=== PATIENT | female | born 1940 | race Caucasian/White ===

== ENCOUNTER 2016-12-11 10:11 | Day surgery (SDC) | payer MEDICARE, OTHER ==
[2016-12-09 08:38] VITALS: BMI 30.3
[~2016-12-11 10:11] MED LIST: LACTATED RINGERS 1,000 ML IV SCH
[2016-12-11] MEDS ORDERED: LIDOCAINE 1% 20 ML VIAL (10MG/ML) FOR IV START SQ ONE (11:28)
[2016-12-11 11:30] VITALS: RESP 16; TEMP 98
[2016-12-11] MEDS ORDERED: LIDOCAINE 1% INJ 10MG/ML (20 ML MDV) ONE (11:56)
[2016-12-11] MEDS ORDERED: PROPOFOL 10 MG/ML 20 ML VIAL IV ONE (11:56)
--- NOTE | 2016-12-11 12:14 | P.PCN ---
Date of Procedure: 12/11/16 Preoperative Diagnosis: Postoperative Diagnosis: Procedure(s) Performed: BRIEF HISTORY: Patient is a 76-year-old pleasant white female, scheduled for an elective colonoscopy as a part of evaluation of prior history of colon polyps. Last colonoscopy was 5 years ago. PROCEDURE PERFORMED: Colonoscopy. PREOPERATIVE DIAGNOSIS: History of colon polyps. IV sedation per Anesthesia. PROCEDURE: After informed consent was obtained, the patient, was brought into the endoscopy unit. IV sedation was administered by Anesthesia under continuous monitoring. Digital rectal examination was normal. Initially the Olympus CF- 160 flexible video colonoscope was then inserted in the rectum, gradually advanced into the cecum without any difficulty. Careful examination was performed as the scope was gradually being withdrawn. Ileocecal valve and the appendiceal orifice were visualized and appeared normal. Prep was excellent. Mucosa of the cecum, ascending colon, transverse colon, descending colon, sigmoid colon, and rectum appeared normal. Scattered sigmoid diverticulosis seen. Retroflexion was performed in the rectum and no lesions were seen. The patient tolerated the procedure well. IMPRESSION: Normal-appearing colon from rectum to cecum with no evidence of colorectal neoplasia. Scattered sigmoid diverticulosis. RECOMMENDATIONS: Findings of this examination were discussed with the patient as well as a family. She was advised to be a high-fiber diet and take fiber supplements as needed. At her age I would not recommend any further Surveillance colonoscopy. . Implants: Indications for Procedure: Operative Findings: Description of Procedure:
[2016-12-11 13:11] VITALS: BP 141/93; PULSE 79
== END 2016-12-11 13:20 | disposition home or self-care (01) ==
LOC: ORWHC2ENDO 10:11
PROVIDERS: ATTEND Internal Medicine Gastroenterology
DX: Z12.11 Encounter for screening for malignant neoplasm of colon (principal); Z86.010 Personal history of colon polyps; K57.30 Diverticulosis of large intestine without perforation or abscess without bleeding; E78.5 Hyperlipidemia, unspecified; F39 Unspecified mood [affective] disorder; G43.909 Migraine, unspecified, not intractable, without status migrainosus; Z79.82 Long term (current) use of aspirin; Z79.899 Other long term (current) drug therapy; Z88.1 Allergy status to other antibiotic agents; Z88.0 Allergy status to penicillin
CPT/HCPCS: J2001; J2704; G0105; 45378

== ENCOUNTER → 2016-12-16 | Outpatient (CLI) | payer MEDICARE, OTHER ==
--- NOTE | 2016-12-17 11:34 | MM ---
Reason for exam: screening (asymptomatic). Last mammogram was performed 1 year ago. History: Patient is postmenopausal and history of other cancer. 2 benign excisional biopsies of the left breast. Benign excisional biopsy of the right breast. Took estrogen for 10 years beginning at age 18. Physical Findings: A clinical breast exam by your physician is recommended on an annual basis and results should be correlated with mammographic findings. MG 3D Screening Mammo W/Cad Bilateral CC and MLO view(s) were taken. Prior study comparison: December 13, 2015, bilateral MG screening mammo w CAD. December 11, 2014, bilateral MG screening mammo w CAD. The breast tissue is almost entirely fat. There is no discrete abnormality. No significant changes when compared with prior studies. ASSESSMENT: Negative, BI-RAD 1 RECOMMENDATION: Routine screening mammogram of both breasts in 1 year.
== END | disposition home or self-care (01) ==
LOC: RADMAMWWP 09:10
PROVIDERS: ATTEND Family Medicine
DX: Z12.31 Encounter for screening mammogram for malignant neoplasm of breast (principal)
CPT/HCPCS: 77063; G0202

== ENCOUNTER → 2018-01-13 | Outpatient (CLI) | payer MEDICARE, OTHER ==
--- NOTE | 2018-01-18 08:28 | MM ---
Reason for exam: screening (asymptomatic). Last mammogram was performed 1 year and 1 month ago. History: Patient is postmenopausal and history of other cancer. 2 benign excisional biopsies of the left breast. Benign excisional biopsy of the right breast. Took estrogen for 10 years beginning at age 18. Physical Findings: A clinical breast exam by your physician is recommended on an annual basis and results should be correlated with mammographic findings. MG 3D Screening Mammo W/Cad Bilateral CC and MLO view(s) were taken. Prior study comparison: December 16, 2016, bilateral MG 3d screening mammo w/cad. December 13, 2015, bilateral MG screening mammo w CAD. There are scattered fibroglandular densities. No significant changes when compared with prior studies. ASSESSMENT: Negative, BI-RAD 1 RECOMMENDATION: Routine screening mammogram of both breasts in 1 year.
== END | disposition home or self-care (01) ==
LOC: RADMAMWWP 16:00
PROVIDERS: ATTEND Family Medicine
DX: Z12.31 Encounter for screening mammogram for malignant neoplasm of breast (principal)
CPT/HCPCS: 77063; 77067

== ENCOUNTER → 2019-02-15 | Outpatient (CLI) | payer MEDICARE, OTHER ==
--- NOTE | 2019-02-16 15:11 | MM ---
Reason for exam: screening (asymptomatic). Last mammogram was performed 1 year and 1 month ago. History: Patient is postmenopausal and history of other cancer. 2 benign excisional biopsies of the left breast. Benign excisional biopsy of the right breast. Took estrogen for 10 years beginning at age 18. Physical Findings: A clinical breast exam by your physician is recommended on an annual basis and results should be correlated with mammographic findings. MG 3D Screening Mammo W/Cad Bilateral CC and MLO view(s) were taken. Prior study comparison: January 13, 2018, bilateral MG 3d screening mammo w/cad. December 16, 2016, bilateral MG 3d screening mammo w/cad. There are scattered fibroglandular densities. Finding #1: There is a 7 mm equal density (isodense), round mass in the upper quadrant of the left breast. Finding #2: There are typically benign calcifications in both breasts. ASSESSMENT: Incomplete: need additional imaging evaluation, BI-RAD 0 RECOMMENDATION: Special view mammogram of the left breast. If lesion persists on supplemental views, image directed ultrasound is recommended. [facility] will attempt to contact patient to return for supplemental views and ultrasound if indicated.
== END | disposition home or self-care (01) ==
LOC: RADMAMWWP 07:44
PROVIDERS: ATTEND Family Medicine
DX: Z12.31 Encounter for screening mammogram for malignant neoplasm of breast (principal)
CPT/HCPCS: 77063; 77067

== ENCOUNTER → 2019-03-03 | Outpatient (CLI) | payer MEDICARE, OTHER ==
--- NOTE | 2019-03-03 11:46 | MM ---
Reason for exam: additional evaluation requested from abnormal screening. Last mammogram was performed 1 month ago. History: Patient is postmenopausal and history of other cancer. 2 benign excisional biopsies of the left breast. Benign excisional biopsy of the right breast. Took estrogen for 10 years beginning at age 18. Physical Findings: Nurse did not find any significant physical abnormalities on exam. MG 3D Work Up W/Cad LT Spot compression CC and LM view(s) were taken of the left breast. Prior study comparison: February 15, 2019, bilateral MG 3d screening mammo w/cad. January 13, 2018, bilateral MG 3d screening mammo w/cad. There are scattered fibroglandular densities. CC lateral asymmetry is stable from prior exams. Left MLO finding relates to a mole with mole marker. These results were verbally communicated with the patient and result sheet given to the patient on 03/03/19. ASSESSMENT: Benign, BI-RAD 2 RECOMMENDATION: Return to routine screening mammogram schedule for both breasts.
== END | disposition home or self-care (01) ==
LOC: RADMAMWWP 10:18
PROVIDERS: ATTEND Family Medicine
DX: R92.8 Other abnormal and inconclusive findings on diagnostic imaging of breast (principal)
CPT/HCPCS: 77065; G0279; 77061

== ENCOUNTER → 2020-01-03 | Outpatient (CLI) | payer MEDICARE ==
--- NOTE | 2020-01-03 15:00 | BD ---
EXAMINATION TYPE: Axial Bone Density DATE OF EXAM: 01/03/2020 COMPARISON: NONE CLINICAL HISTORY: 79-year-old female with known osteoporosis, postmenopausal screening Nuclear Medicine Study in the last 2 weeks: NO Barium Study in the last week: NO : NO Height: 5 FT 5 1/4 IN Weight: 171 FRAX RISK QUESTIONS: Alcohol (3 or more units per day): NO Family History (Parent hip fracture): YES Glucocorticoids (More than 3mos): NO (Ex: prednisone, prednisolone, methylprednisolone, dexamethasone, and hydrocortisone). History of Fracture in Adulthood: YES Secondary Osteoporosis: 1. Type 1 Diabetes: NO 2. Hyperthyroidism: NO 3. Menopause before 45: NO 4. Malnutrition: NO 5. Chronic liver disease: NO Rheumatoid Arthritis: NO Current Tobacco Use: NO RISK FACTORS HISTORY OF: History of Wrist Fracture: LT When: 20 YEARS AGO Family History of Osteoporosis: YES Active: YES Postmenopausal woman: AGE 58 Take estrogen and/or progesterone medications: TOOK FOR 10 YEARS NO LONGER TAKES MEDICATIONS: Additional Medications: CALCIUM , PROTONIX, ELEVIL, HYDROCHLOROTHIAZIDE, CRESTOR Additional History: EXAM MEASUREMENTS: Bone mineral densitometry was performed using the [employer] System. Bone mineral density as measured about the Lumbar spine is: ----- L1-L4(G/cm2): 1.419 T Score Values are as follows: ----- L2: 2.4 ----- L3: 2.9 ----- L4: 1.0 ----- L1-L4: 2.0 Bone mineral density has: DECREASED -6.0 % since study of: 2012 Bone mineral density about the R hip (g/cm2): 0.806 Bone mineral density about the L hip (g/cm2): 0.846 T Score values are as follows: -----R Neck: -1.7 -----L Neck: -1.4 -----R Total: -1.2 -----L Total: -0.8 Bone mineral density has: INCREASED 0.3 % since study of: 2012 IMPRESSION: Osteopenia (T Score between -2.5 and -1). There is slightly increased risk of fracture and the patient may be considered for treatment. Re-Screen 2-5 years. NOTE: T-SCORE=SD OF THE YOUNG ADULT MEAN.
== END | disposition home or self-care (01) ==
LOC: RADBDWWP 09:25
PROVIDERS: ATTEND Family Medicine
DX: M81.0 Age-related osteoporosis without current pathological fracture (principal)
CPT/HCPCS: 77080

== ENCOUNTER → 2020-05-24 | Outpatient (CLI) | payer MEDICARE ==
--- NOTE | 2020-05-27 11:05 | MM ---
Reason for exam: screening (asymptomatic). Last mammogram was performed 1 year and 3 months ago. History: Patient is postmenopausal and history of other cancer. 2 benign excisional biopsies of the left breast. Benign excisional biopsy of the right breast. Took estrogen for 10 years beginning at age 18. Physical Findings: A clinical breast exam by your physician is recommended on an annual basis and results should be correlated with mammographic findings. MG 3D Screening Mammo W/Cad Bilateral CC and MLO view(s) were taken. Prior study comparison: March 03, 2019, left breast MG 3d work up w/cad LT. February 15, 2019, bilateral MG 3d screening mammo w/cad. There are scattered fibroglandular densities. Stable benign calcifications. There is no discrete abnormality. No significant changes when compared with prior studies. ASSESSMENT: Benign, BI-RAD 2 RECOMMENDATION: Routine screening mammogram of both breasts in 1 year.
== END | disposition home or self-care (01) ==
LOC: RADMAMWWP 07:46
PROVIDERS: ATTEND Family Medicine
DX: Z12.31 Encounter for screening mammogram for malignant neoplasm of breast (principal)
CPT/HCPCS: 77063; 77067

== ENCOUNTER 2020-06-11 14:30 | Inpatient (IN) | payer MEDICARE ==
[2020-06-11] MEDS ORDERED: SODIUM CHLORIDE 0.9% 500 ML 500 ML IV STA (14:53)
[2020-06-11 15:02] LABS: Glucose,Whole Blood 103 mg/dL (75-99)
--- NOTE | 2020-06-11 15:06 | ED ---
General Adult HPI - General Chief complaint: Neuro Symptoms/Deficit Stated complaint: Vision problems Time Seen by Provider: 06/11/20 14:35 Source: patient, RN notes reviewed Mode of arrival: ambulatory Limitations: no limitations - History of Present Illness Initial comments: This is an 79-year-old female presents emergency Department because she lost some of her visual arnett in both eyes. Patient states when she looks straight ahead she loses her left upper quadrant in both eyes. Patient states this started about 9:45 last night. Patient denies any headache patient denies any numbness or weakness. Patient denies any slurred speech or facial droop. Patient denies any other symptoms at this time. Patient states she went to an window/distribution clerk and he found no abnormality and thought she might of had a stroke. His any recent fever chills or cough per patient denies any chest pain or difficulty breathing patient denies abdominal pain patient denies nausea vomiting diarrhea. - Related Data Home Medications Medication Instructions Recorded Confirmed Amitriptyline HCl 50 mg PO HS 03/21/15 12/11/16 Aspirin 81 mg PO HS 03/21/15 12/11/16 Calcium Carbonate/Vitamin D3 1 each PO DAILY 03/21/15 12/11/16 [Calcium 600 + Vit D Tablet] Lysine 2 tab PO DAILY 03/21/15 12/11/16 Magnesium W/ Zinc, 400 Mg 1 tab PO DAILY 03/21/15 12/11/16 [place]-3S/Dha/Epa/Fish Oil [[place]-3 1 each PO DAILY 03/21/15 12/11/16 Fish Oil 1,000 mg Sfgl] Pantoprazole Sodium [Protonix] 40 mg PO DAILY 03/21/15 12/11/16 Allergies Allergy/AdvReac Type Severity Reaction Status Date / Time clindamycin [From Cleocin] Allergy Rash/Hives Verified 06/11/20 15:34 clindamycin HCl Allergy Itching Verified 06/11/20 15:34 [From Cleocin] clindamycin palmitate HCl Allergy Itching Verified 06/11/20 15:34 [From Cleocin] clindamycin phosphate Allergy Itching Verified 06/11/20 15:34 [From Cleocin] nitrofurantoin Allergy Itching Verified 06/11/20 15:34 [From Furadantin] Penicillins Allergy Rash/Hives Verified 06/11/20 15:34 Review of Systems ROS Statement: Those systems with pertinent positive or pertinent negative responses have been documented in the HPI. ROS Other: All systems not noted in ROS Statement are negative. Past Medical History Past Medical History: GERD/Reflux, Hyperlipidemia, Hypertension, Osteoarthritis (OA) History of Any Multi-Drug Resistant Organisms: None Reported Past Surgical History: Adenoidectomy, Tonsillectomy, Tubal Ligation Additional Past Surgical History / Comment(s): breast biopsy Past Psychological History: No Psychological Hx Reported Smoking Status: Never smoker Past Alcohol Use History: Occasional Past Drug Use History: None Reported - Past Family History Father Family Medical History: Pulmonary Embolus Sister(s) Family Medical History: Pulmonary Embolus General Exam - General Exam Comments Initial Comments: GENERAL: Patient is well-developed and well-nourished. Patient is nontoxic and well- hydrated and is in no acute distress. ENT: Neck is soft and supple. No significant lymphadenopathy is noted. Oropharynx is clear. Moist mucous membranes. Neck has full range of motion without eliciting any pain. EYES: The sclera were anicteric and conjunctiva were pink and moist. Extraocular movements were intact and pupils were equal round and reactive to light. Eyelids were unremarkable. Patient has visual field deficit in the left upper quadrant both eyes. Left eye is worse in the right eye PULMONARY: Unlabored respirations. Good breath sounds bilaterally. No audible rales rhonchi or wheezing was noted. CARDIOVASCULAR: There is a regular rate and rhythm without any murmurs gallops or rubs. ABDOMEN: Soft and nontender with normal bowel sounds. No palpable organomegaly was noted. There is no palpable pulsatile mass. SKIN: Skin is clear with no lesions or rashes and otherwise unremarkable. NEUROLOGIC: Patient is alert and oriented x3. Cranial nerves II through XII are grossly intact. Motor and sensory are also intact. Normal speech, volume and content. Symmetrical smile. MUSCULOSKELETAL: Normal extremities with adequate strength and full range of motion. No lower extremity swelling or edema. No calf tenderness. LYMPHATICS: No significant lymphadenopathy is noted PSYCHIATRIC: Normal psychiatric evaluation. Limitations: no limitations Course Vital Signs 06/11/20 06/11/20 06/11/20 14:33 15:23 15:32 Temperature 99.2 F Pulse Rate 101 H 84 87 Respiratory 16 16 14 Rate Blood Pressure 158/91 137/82 133/96 O2 Sat by Pulse 94 L 98 96 Oximetry 06/11/20 06/11/20 15:45 16:00 Temperature Pulse Rate 97 99 Respiratory 16 16 Rate Blood Pressure 142/85 133/79 O2 Sat by Pulse 99 95 Oximetry Medical Decision Making - Medical Decision Making EKG shows normal sinus rhythm at 97 bpm WI interval 274 QRS is 98 QT interval 346 QTC is 439. Patient's EKG shows no ST segment elevation or depression. CTA shows no acute abnormality. I spoke with Dr. Faye he saw the CTA and he stated there be no intervention. The computed tomography scan of the brain does show a new acute occipital stroke. - Lab Data Result diagrams: 06/11/20 15:05 06/11/20 15:05 Lab Results 06/11/20 06/11/20 06/11/20 Range/Units 14:59 15:05 15:05 WBC 14.6 H (3.8-10.6) k/uL RBC 5.37 (3.80-5.40) m/uL Hgb 16.4 H (11.4-16.0) gm/dL Hct 47.4 H (34.0-46.0) % MCV 88.2 (80.0-100.0) fL MCH 30.5 (25.0-35.0) pg MCHC 34.6 (31.0-37.0) g/dL RDW 12.2 (11.5-15.5) % Plt Count 237 (150-450) k/uL MPV 7.8 Neutrophils % 75 % Lymphocytes % 19 % Monocytes % 3 % Eosinophils % 2 % Basophils % 1 % Neutrophils # 10.9 H (1.3-7.7) k/uL Lymphocytes # 2.8 (1.0-4.8) k/uL Monocytes # 0.5 (0-1.0) k/uL Eosinophils # 0.3 (0-0.7) k/uL Basophils # 0.1 (0-0.2) k/uL PT 10.1 (9.0-12.0) sec INR 1.0 (<1.2) APTT 24.6 (22.0-30.0) sec Sodium (137-145) mmol/L Potassium (3.5-5.1) mmol/L Chloride (98-107) mmol/L Carbon Dioxide (22-30) mmol/L Anion Gap mmol/L BUN (7-17) mg/dL Creatinine (0.52-1.04) mg/dL Est GFR (CKD-EPI)AfAm (>60 ml/min/1.73 sqM) Est GFR (CKD-EPI)NonAf (>60 ml/min/1.73 sqM) Glucose (74-99) mg/dL POC Glucose (mg/dL) 103 H (75-99) mg/dL POC Glu [employer] Bhargavi Chao Calcium (8.4-10.2) mg/dL Total Bilirubin (0.2-1.3) mg/dL AST (14-36) U/L ALT (4-34) U/L Alkaline Phosphatase (38-126) U/L Troponin I (0.000-0.034) ng/mL Total Protein (6.3-8.2) g/dL Albumin (3.5-5.0) g/dL 06/11/20 06/11/20 Range/Units 15:05 15:05 WBC (3.8-10.6) k/uL RBC (3.80-5.40) m/uL Hgb (11.4-16.0) gm/dL Hct (34.0-46.0) % MCV (80.0-100.0) fL MCH (25.0-35.0) pg MCHC (31.0-37.0) g/dL RDW (11.5-15.5) % Plt Count (150-450) k/uL MPV Neutrophils % % Lymphocytes % % Monocytes % % Eosinophils % % Basophils % % Neutrophils # (1.3-7.7) k/uL Lymphocytes # (1.0-4.8) k/uL Monocytes # (0-1.0) k/uL Eosinophils # (0-0.7) k/uL Basophils # (0-0.2) k/uL PT (9.0-12.0) sec INR (<1.2) APTT (22.0-30.0) sec Sodium 137 (137-145) mmol/L Potassium 4.1 (3.5-5.1) mmol/L Chloride 102 (98-107) mmol/L Carbon Dioxide 26 (22-30) mmol/L Anion Gap 9 mmol/L BUN 17 (7-17) mg/dL Creatinine 0.84 (0.52-1.04) mg/dL Est GFR (CKD-EPI)AfAm 76 (>60 ml/min/1.73 sqM) Est GFR (CKD-EPI)NonAf 66 (>60 ml/min/1.73 sqM) Glucose 101 H (74-99) mg/dL POC Glucose (mg/dL) (75-99) mg/dL POC Glu [employer] Calcium 10.0 (8.4-10.2) mg/dL Total Bilirubin 0.9 (0.2-1.3) mg/dL AST 40 H (14-36) U/L ALT 27 (4-34) U/L Alkaline Phosphatase 89 (38-126) U/L Troponin I <0.012 (0.000-0.034) ng/mL Total Protein 8.1 (6.3-8.2) g/dL Albumin 4.8 (3.5-5.0) g/dL Critical Care Time Critical Care Time: Yes Total Critical Care Time: 35 Disposition Clinical Impression: Cerebrovascular accident (CVA) Disposition: ADMITTED IP TO THIS HOSP Referrals: Antonieta Santa MD [Primary Care Provider] - 1-2 days Time of Disposition: 16:20
[2020-06-11 15:14] LABS: Basophils # (A) 0.1 k/uL (0-0.2); Basophils % (A) 1 %; Eosinophils # (A) 0.3 k/uL (0-0.7); Eosinophils % (A) 2 %; HCT 47.4 % (34.0-46.0); HGB 16.4 gm/dL (11.4-16.0); Lymphocytes # (A) 2.8 k/uL (1.0-4.8); Lymphocytes % (A) 19 %; MCH 30.5 pg (25.0-35.0); MCHC 34.6 g/dL (31.0-37.0); MCV 88.2 fL (80.0-100.0); Mean Platelet Volume 7.8; Monocytes # (A) 0.5 k/uL (0-1.0); Monocytes % (A) 3 %; Neutrophils # (A) 10.9 k/uL (1.3-7.7); Neutrophils % (A) 75 %; Platelet Count 237 k/uL (150-450); RBC 5.37 m/uL (3.80-5.40); RDW 12.2 % (11.5-15.5); WBC 14.6 k/uL (3.8-10.6)
[2020-06-11 15:24] LABS: Partial Thromboplastin Time 24.6 sec (22.0-30.0); Prothrombin Time 10.1 sec (9.0-12.0)
--- NOTE | 2020-06-11 15:26 | CT ---
EXAMINATION TYPE: CT brain wo con for TPA DATE OF EXAM: 06/11/2020 COMPARISON: HISTORY: visual disturbance CT DLP: [address] of the brain was performed. The ventricles, basal cisterns and sulci overlying the cerebral convexities demonstrate mild enlargem ent. There is decreased attenuation within the right occipital lobe compatible with acute CVA. There is no evidence for intracranial hemorrhage or sulcal effacement. There is decreased attenuation about the periventricular white matter and deep white matter of both c erebral hemispheres, compatible with chronic small vessel ischemia. Differential diagnosis does inclu de demyelination. No mass effects are seen.No midline shift. Osseous calvarium is intact. If symptoms persist consider MRI. IMPRESSION: 1. There is decreased attenuation within the right occipital lobe compatible with acute CVA. No evide nce for hemorrhagic transformation.
[2020-06-11 15:27] LABS: Albumin 4.8 g/dL (3.5-5.0); Potassium 4.1 mmol/L (3.5-5.1); Total Bilirubin 0.9 mg/dL (0.2-1.3); Total Protein 8.1 g/dL (6.3-8.2)
--- NOTE | 2020-06-11 16:06 | CT ---
EXAMINATION TYPE: CT angio head neck DATE OF EXAM: 06/11/2020 COMPARISON: None HISTORY: visual disturbance CT DLP: 1490.5 mGycm CONTRAST: Performed with IV Contrast, patient injected with 65 mL of Isovue 370. Combination Contrast CTA cervical carotids and [place] CTA cervical carotids with 3-D recons truction Contrast CTA of the cervical carotids was performed 3-D reconstruction imaging obtained at a separate workstation. Right carotid system: Mild plaque is seen of the right common carotid artery. There is mild plaque a lso noted at the carotid bulb and proximal ICA. No significant diameter reduction. ECA is patent. Right vertebral artery appears unremarkable. Left carotid system: Mild plaque is seen of the left common carotid artery. There is mild plaque als o noted at the carotid bulb and proximal ICA. No significant diameter reduction. ECA is patent. Lef t vertebral artery appears unremarkable. IMPRESSION: 1. No significant diameter reduction to account for the patient's symptoms. CTA [place] with 3-D reconstruction Contrast CTA of the [place] was performed 3-D reconstruction imaging obtained at a separate workstation. Vertebrobasilar system as well as intracranial portions of the internal carotid arteries and their ma merlene tributaries are patent. I do not see evidence for sizable aneurysm or vascular malformation. Pl ease note MRI provides greater sensitivity and specificity. Visualized brain appears grossly unremar kable. IMPRESSION: 1. No significant abnormality.
[2020-06-11] MEDS ORDERED: ASPIRIN 325 MG TAB PO STA (16:11)
--- NOTE | 2020-06-11 16:38 | XR ---
EXAMINATION TYPE: XR chest 2V DATE OF EXAM: 06/11/2020 COMPARISON: None HISTORY: Altered mental status headache TECHNIQUE: FINDINGS: There is no heart failure nor confluent pneumonic infiltrate. There is probably a hiatal he rnia. Costophrenic angles are clear. There are no hilar masses. Thoracic aorta is atheromatous. Bony thorax is intact. IMPRESSION: No active cardiopulmonary disease.
--- NOTE | 2020-06-11 19:31 | P.HPIM ---
History of Present Illness H&P Date: 06/11/20 Cuauhtemoc Blake, is an 79-year-old female who presented to [facility] emergency room due to sudden loss of vision in the left eye patient was seen by her station installer and was told that there was no abnormality on her eye exam she was referred to emergency room, patient was evaluated in the emergency room by Dr. Hodgson, her vital exam on presentation revealed a temperature of 99.2 pulse 101 respiration 16 and her pulse ox was 94% on room air. White blood count was elevated at 14.6 and AST was slightly elevated at 40 EKG was done in the emergency room and revealed normal sinus rhythm, CT angiogram of the head and neck did not reveal any abnormality , computed tomography scan of the brain revealed evidence of decreased attenuation within the right occipital lobe compatible with acute CVA no evidence for hemorrhagic transformation, patient was started on oral Plavix and aspirin in the emergency room she was admitted to telemetry floor, echocardiogram was ordered cardiology and neurology consultation were requested. Patient denies any previous history of cardiovascular disease or stroke in the past, she stated that she had an episode of chest pain 10 years ago at that time she started seen [facility] but never had any diagnosis of myocardial infarction and coronary artery disease or congestive heart failure in the past. On review of systems patient is complaining of partial loss of vision in the lateral vision of the left eye she is also complaining of headache otherwise she denies any complaints there is no fever or chills no dizziness, no chest pain no shortness of breath no cough no nausea or vomiting no abdominal pain no diarrhea no blood in the stools no burning with urination no frequency or urgency and no hematuria there is no change in her speech or her gait there is no weakness or numbness in any of the extremities. Past Medical History Past Medical History: GERD/Reflux, Hyperlipidemia, Hypertension, Osteoarthritis (OA) Additional Past Medical History / Comment(s): HX PRE-CA SKIN. 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.MIGRAINE HEADACHE History of Any Multi-Drug Resistant Organisms: None Reported Date of last positivie culture/infection: 11/24/18 MDRO Source:: URINE Past Surgical History: Adenoidectomy, Tonsillectomy, Tubal Ligation Additional Past Surgical History / Comment(s): breast biopsy Past Anesthesia/Blood Transfusion Reactions: No Reported Reaction Past Psychological History: No Psychological Hx Reported Smoking Status: Never smoker Past Alcohol Use History: Occasional Past Drug Use History: None Reported - Past Family History Father Family Medical History: Pulmonary Embolus Sister(s) Family Medical History: Pulmonary Embolus Medications and Allergies Home Medications Medication Instructions Recorded Confirmed Type Aspirin 81 mg PO HS 03/21/15 06/11/20 History Pantoprazole Sodium [Protonix] 40 mg PO DAILY 03/21/15 06/11/20 History Amitriptyline HCl [Elavil] 50 mg PO HS 06/11/20 06/11/20 History Ascorbic Acid [Vitamin C] 1,000 mg PO DAILY 06/11/20 06/11/20 History Cholecalciferol [Vitamin D3 (25 2,000 unit PO DAILY 06/11/20 06/11/20 History Mcg = 1000 Iu)] Cranberry Fruit Extract [Cranberry] 500 mg PO DAILY 06/11/20 06/11/20 History L.acidoph,Paracasei, B.lactis 1 cap PO DAILY 06/11/20 06/11/20 History [Probiotic] Lysine [l-Lysine] 500 mg PO DAILY 06/11/20 06/11/20 History Gray-3 Fatty Acids/Fish Oil [Fish 1 cap PO DAILY 06/11/20 06/11/20 History Oil 1,000 mg Softgel] Rosuvastatin Calcium [Crestor] 10 mg PO HS 06/11/20 06/11/20 History Zinc 50 mg PO DAILY 06/11/20 06/11/20 History hydroCHLOROthiazide 25 mg PO DAILY 06/11/20 06/11/20 History Allergies Allergy/AdvReac Type Severity Reaction Status Date / Time clindamycin [From Cleocin] Allergy Rash/Hives Verified 06/11/20 16:56 clindamycin HCl Allergy Itching Verified 06/11/20 16:56 [From Cleocin] clindamycin palmitate HCl Allergy Itching Verified 06/11/20 16:56 [From Cleocin] clindamycin phosphate Allergy Itching Verified 06/11/20 16:56 [From Cleocin] nitrofurantoin Allergy Itching Verified 06/11/20 16:56 [From Furadantin] Penicillins Allergy Rash/Hives Verified 06/11/20 16:56 Physical Exam Vitals: Vital Signs Temp Pulse Resp BP Pulse Ox 06/11/20 18:55 82 12 131/82 95 06/11/20 17:59 83 12 136/87 93 L 06/11/20 16:00 99 16 133/79 95 06/11/20 15:45 97 16 142/85 99 06/11/20 15:32 87 14 133/96 96 06/11/20 15:23 84 16 137/82 98 06/11/20 14:33 99.2 F 101 H 16 158/91 94 L Intake and Output 06/11/20 06/11/20 06/11/20 06:59 14:59 22:59 Other: Weight 78.018 kg On physical exam patient is alert and oriented 3 in no apparent distress HEENT head normocephalic and atraumatic Neck is supple no JVD no goiter no lymphadenopathy Chest exam reveals a few scattered crackles no wheezing Cardiac exam reveals regular heart sounds S1 and S2 no gallops no murmurs Abdomen is soft nontender no organomegaly with normal bowel sounds Extremity exam reveals no edema no cyanosis or clubbing Neurological examination reveals loss of vision in the lateral left eye visual field Otherwise no gross focal neurological deficit Results CBC & Chem 7: 06/11/20 15:05 06/11/20 15:05 Labs: Abnormal Lab Results - Last 24 Hours (Table) 06/11/20 06/11/20 06/11/20 Range/Units 14:59 15:05 15:05 WBC 14.6 H (3.8-10.6) k/uL Hgb 16.4 H (11.4-16.0) gm/dL Hct 47.4 H (34.0-46.0) % Neutrophils # 10.9 H (1.3-7.7) k/uL Glucose 101 H (74-99) mg/dL POC Glucose (mg/dL) 103 H (75-99) mg/dL AST 40 H (14-36) U/L Assessment and Plan Plan: 1. 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 Leukocytosis will check chest x-ray and urine analysis will monitor progress closely 3. Underlying history of hyperlipidemia maintained on Lipitor continue 4. Underlying history of hypertension home medications reviewed and reordered 5. Underlying history of migraine headache Echocardiogram ordered Consultation with neurology and cardiology requested Medication reviewed and reordered Will follow closely For DVT prophylaxis patient started on Lovenox subcu For GI prophylaxis Protonix
[2020-06-11] MEDS: AMITRIPTYLINE HCL 50 MG TAB PO SCH (20:18)
[2020-06-11] MEDS: ENOXAPARIN 40 MG/0.4 ML SYRINGE SQ SCH (20:18)
[2020-06-11] MEDS ORDERED: ASPIRIN 81 MG PO SCH (21:00)
[2020-06-11] MEDS ORDERED: ATORVASTATIN 20 MG TAB PO SCH (21:00)
[2020-06-11 23:17] LABS: Appearance,Urine Clear (Clear); Bilirubin,Urine Negative (Negative); Blood,Urine Small (Negative); Color,Urine Light Yellow; Glucose,Urine (UA) Negative (Negative); Ketones,Urine Negative (Negative); Leukocyte Esterase,Urine Small (Negative); Nitrite,Urine Negative (Negative); Protein,Urine Negative (Negative); RBC,Urine 4 /hpf (0-5); Specific Gravity,Urine 1.018 (1.001-1.035); Urobilinogen,Urine <2.0 mg/dL (<2.0); WBC,Urine 8 /hpf (0-5)
[2020-06-12] MEDS: PANTOPRAZOLE 40 MG TABLET PO SCH (06:25)
[2020-06-12] MEDS ORDERED: ASPIRIN 325 MG TAB PO SCH (09:00)
[2020-06-12] MEDS ORDERED: NON FORMULARY DRUG (Omega-3 Fatty Acids/Fish Oil [Fish Oil 1,000 Mg Softgel] 1 EACH Capsul PO SCH (09:00)
[2020-06-12] MEDS ORDERED: NON FORMULARY DRUG (Lysine [L-Lysine] 500 MG Tablet) PO SCH (09:00)
[2020-06-12] MEDS ORDERED: NON FORMULARY DRUG (Zinc [Zinc] 50 MG Tablet) PO SCH (09:00)
[2020-06-12] MEDS: ASCORBIC ACID 500 MG TAB PO SCH (09:07)
[2020-06-12] MEDS: CHOLECALCIFEROL 1,000 UNIT TAB PO SCH (09:07)
[2020-06-12] MEDS: CLOPIDOGREL 75 MG TAB PO SCH (09:07)
[2020-06-12] MEDS: hydroCHLOROthiazide 25 MG TAB PO SCH (09:08)
[2020-06-12] MEDS: LACTOBACILLUS ACIDOPH & BULGAR 1 EACH PACKET PO SCH (09:08)
[2020-06-12] MEDS: ENOXAPARIN 40 MG/0.4 ML SYRINGE SQ SCH (09:08)
[2020-06-12 11:25] LABS: Cholesterol 132 mg/dL (<200); HDL Cholesterol 39 mg/dL (40-60); LDL Cholesterol,Calculated 60 mg/dL (0-99); Triglycerides 163 mg/dL (<150)
--- NOTE | 2020-06-12 11:57 | P.CRDCN ---
History of Present Illness Consult date: 06/12/20 History of present illness: CHIEF COMPLAINT: CVA HISTORY OF PRESENT ILLNESS: 79-year-old female with a past medical history s ignificant for hypertension and hyperlipidemia. Patient follows in the office with Dr. Burnette. We've been asked to see the patient in consultation for CVA. Patient examined this morning at the bedside.Patient was bending down Wednesday right to get something from her nightstand. When she stood up and looked in the mirror she could only see half her face. she has a history of migraines and has visual losses when she gets migraines so she did not think much of it and went to bed. When she woke up the following morning she was still having issues with her vision so she went to see her eye doctor who told her everything looked okay from his standpoint and thought she might be having a stroke and recommended that she come to the hospital for further evaluation. This morning the patient is still having vision loss but states it is improved significantly. She denies any weakness of any of her extremities. She denies chest pain or pressure. She denies shortness of breath. She denies any previous history of stroke. She denies any previous heart disease. She states she was hospitalized many years ago for what was thought to be a heart attack but she underwent testing and states everything was normal. DIAGNOSTICS: EKG reveals sinus rhythm without signs of acute ischemia Chest xray negative for acute process CT angio head and neck: negative CT of the brain: acute CVA of the right occipital lobe Laboratory data: WBC 14.6. Hemoglobin 16.4. Platelet count 237. Sodium 137. Potassium 4.1. BUN 17. Creatinine 0.84. Troponin negative 1. Current home cardiac medications include Crestor 10 mg daily, aspirin 81 mg daily REVIEW OF SYSTEMS: At the time of my exam: CONSTITUTIONAL: Denies fever or chills. HEENT: Reports loss of vision in both eyes but states it is improved from yesterday. Denies hemoptysis CARDIOVASCULAR: Denies chest pain, orthopnea, PND or palpitations RESPIRATORY: No shortness of breath. GASTROINTESTINAL: Denies abdominal pain. Denies nausea or vomiting. HEMATOLOGIC: Denies bleeding disorders. GENITOURINARY: Denies any blood in urine. SKIN: Denies pruitis. Denies rash. PHYSICAL EXAM: VITAL SIGNS: Reviewed. GENERAL: Well-developed in no acute distress. HEENT: Head is normocephalic. Pupils are equal, round. Sclerae anicteric. Mucous membranes of the mouth are moist. Neck supple. No JVD or thyromegaly LUNGS: Respirations even and unlabored. Lungs essentially clear to auscultation bilaterally. HEART: Regular rate and rhythm. S1 and S2 heard. ABDOMEN: Soft. Nondistended. Nontender. EXTREMITIES: Normal range of motion. No clubbing or cyanosis. Peripheral pulses intact. No lower extremity edema NEUROLOGIC: Awake and alert. Oriented x 3. Patient with loss of visual arnett u reddy examination. ASSESSMENT: Acute CVA right occipital lobe Hypertension Hyperlipidemia PLAN: Continue aspirin and Plavix Neurology has been consulted for evaluation. Await recommendations Obtain 2-D echo to assess cardiac structure and function Continue telemetry monitoring to assess for any arrhythmias Recommend 30 day event monitor at discharge. RADIOLOGY CT TECHNOLOGIST scheduled appointment for patient to have event monitor placed WednesdayJune 17 at 10am at [facility]. Nurse practitioner note has been reviewed by physician. Signing provider agrees with the documented findings, assessment, and plan of care. Past Medical History Past Medical History: GERD/Reflux, Hyperlipidemia, Hypertension, Osteoarthritis (OA) Additional Past Medical History / Comment(s): HX PRE-CA SKIN. 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.MIGRAINE HEADACHE History of Any Multi-Drug Resistant Organisms: None Reported Date of last positivie culture/infection: 11/24/18 MDRO Source:: URINE Past Surgical History: Adenoidectomy, Tonsillectomy, Tubal Ligation Additional Past Surgical History / Comment(s): breast biopsy Past Anesthesia/Blood Transfusion Reactions: No Reported Reaction Past Psychological History: No Psychological Hx Reported Smoking Status: Never smoker Past Alcohol Use History: Occasional Past Drug Use History: None Reported - Past Family History Father Family Medical History: Pulmonary Embolus Sister(s) Family Medical History: Pulmonary Embolus Medications and Allergies Home Medications Medication Instructions Recorded Confirmed Type Aspirin 81 mg PO HS 03/21/15 06/11/20 History Pantoprazole Sodium [Protonix] 40 mg PO DAILY 03/21/15 06/11/20 History Amitriptyline HCl [Elavil] 50 mg PO HS 06/11/20 06/11/20 History Ascorbic Acid [Vitamin C] 1,000 mg PO DAILY 06/11/20 06/11/20 History Cholecalciferol [Vitamin D3 (25 2,000 unit PO DAILY 06/11/20 06/11/20 History Mcg = 1000 Iu)] Cranberry Fruit Extract [Cranberry] 500 mg PO DAILY 06/11/20 06/11/20 History L.acidoph,Paracasei, B.lactis 1 cap PO DAILY 06/11/20 06/11/20 History [Probiotic] Lysine [l-Lysine] 500 mg PO DAILY 06/11/20 06/11/20 History [place]-3 Fatty Acids/Fish Oil [Fish 1 cap PO DAILY 06/11/20 06/11/20 History Oil 1,000 mg Softgel] Rosuvastatin Calcium [Crestor] 10 mg PO HS 06/11/20 06/11/20 History Zinc 50 mg PO DAILY 06/11/20 06/11/20 History hydroCHLOROthiazide 25 mg PO DAILY 06/11/20 06/11/20 History Allergies Allergy/AdvReac Type Severity Reaction Status Date / Time clindamycin [From Cleocin] Allergy Rash/Hives Verified 06/11/20 16:56 clindamycin HCl Allergy Itching Verified 06/11/20 16:56 [From Cleocin] clindamycin palmitate HCl Allergy Itching Verified 06/11/20 16:56 [From Cleocin] clindamycin phosphate Allergy Itching Verified 06/11/20 16:56 [From Cleocin] nitrofurantoin Allergy Itching Verified 06/11/20 16:56 [From Furadantin] Penicillins Allergy Rash/Hives Verified 06/11/20 16:56 Physical Exam Vitals: Vital Signs Temp Pulse Pulse Resp BP BP Pulse Ox 06/12/20 04:00 98.4 F 84 16 95/50 96 06/12/20 00:00 98.2 F 78 17 102/45 96 06/11/20 20:06 98.4 F 84 17 136/78 94 L 06/11/20 18:55 82 12 131/82 95 06/11/20 17:59 83 12 136/87 93 L 06/11/20 16:00 99 16 133/79 95 06/11/20 15:45 97 16 142/85 99 06/11/20 15:32 87 14 133/96 96 06/11/20 15:23 84 16 137/82 98 06/11/20 14:33 99.2 F 101 H 16 158/91 94 L Intake and Output 06/11/20 06/12/20 06/12/20 22:59 06:59 14:59 Output Total 600 Balance -600 Output: Urine 600 Other: Weight 78.018 kg 77.1 kg Results 06/11/20 15:05 06/11/20 15:05 Cardiac Enzymes 06/11/20 06/11/20 Range/Units 15:05 15:05 AST 40 H (14-36) U/L Troponin I <0.012 (0.000-0.034) ng/mL Coagulation 06/11/20 Range/Units 15:05 PT 10.1 (9.0-12.0) sec APTT 24.6 (22.0-30.0) sec CBC 06/11/20 Range/Units 15:05 WBC 14.6 H (3.8-10.6) k/uL RBC 5.37 (3.80-5.40) m/uL Hgb 16.4 H (11.4-16.0) gm/dL Hct 47.4 H (34.0-46.0) % Plt Count 237 (150-450) k/uL Comprehensive Metabolic Panel 06/11/20 Range/Units 15:05 Sodium 137 (137-145) mmol/L Potassium 4.1 (3.5-5.1) mmol/L Chloride 102 (98-107) mmol/L Carbon Dioxide 26 (22-30) mmol/L BUN 17 (7-17) mg/dL Creatinine 0.84 (0.52-1.04) mg/dL Glucose 101 H (74-99) mg/dL Calcium 10.0 (8.4-10.2) mg/dL AST 40 H (14-36) U/L ALT 27 (4-34) U/L Alkaline Phosphatase 89 (38-126) U/L Total Protein 8.1 (6.3-8.2) g/dL Albumin 4.8 (3.5-5.0) g/dL Current Medications Generic Name Dose Route Start Last Admin Trade Name Freq PRN Reason Stop Dose Admin Amitriptyline HCl 50 mg 06/11/20 21:00 06/11/20 20:18 Amitriptyline Hcl 50 Mg Tab PO 50 mg HS SUGEY Administration Ascorbic Acid 1,000 mg 06/12/20 09:00 Ascorbic Acid 500 Mg Tab PO DAILY COUNT INCLUDES THE [facility] Aspirin 325 mg 06/12/20 09:00 Aspirin 325 Mg Tab PO DAILY COUNT INCLUDES THE [facility] Atorvastatin Calcium 20 mg 06/11/20 21:00 06/11/20 20:18 Atorvastatin 20 Mg Tab PO 20 mg HS COUNT INCLUDES THE [facility] Administration Cholecalciferol 2,000 unit 06/12/20 09:00 Cholecalciferol 1,000 Unit Tab PO DAILY COUNT INCLUDES THE [facility] Clopidogrel Bisulfate 75 mg 06/12/20 09:00 Clopidogrel 75 Mg Tab PO DAILY COUNT INCLUDES THE [facility] Enoxaparin Sodium 40 mg 06/11/20 19:00 06/11/20 20:18 Enoxaparin 40 Mg/0.4 Ml Syringe SQ 40 mg DAILY COUNT INCLUDES THE [facility] Administration Hydrochlorothiazide 25 mg 06/12/20 09:00 Hydrochlorothiazide 25 Mg Tab PO DAILY COUNT INCLUDES THE [facility] Lactobacillus Acidoph/Bulgaricus 1 each 06/12/20 09:00 Lactobacillus Acidoph & Bulgar 1 Each Packet PO DAILY COUNT INCLUDES THE [facility] Pantoprazole Sodium 40 mg 06/12/20 07:30 06/12/20 06:25 Pantoprazole 40 Mg Tablet PO 40 mg AC-BRKFST COUNT INCLUDES THE [facility] Administration Intake and Output 06/11/20 06/12/20 06/12/20 22:59 06:59 14:59 Output Total 600 Balance -600 Output: Urine 600 Other: Weight 78.018 kg 77.1 kg 06/11/20 15:05 06/11/20 15:05
--- NOTE | 2020-06-12 14:00 | ECHOF ---
Referral Reason:cva MEASUREMENTS -------- HEIGHT: 165.1 cm WEIGHT: 76.7 kg BP: 95/50 IVSd: 1.2 cm (0.6 - 1.1) LVIDd: 3.5 cm (3.9 - 5.3) LVPWd: 1.1 cm (0.6 - 1.1) EDV(Teich): 51 ml IVSs: 1.6 cm LVIDs: 2.2 cm LVPWs: 1.7 cm %IVS Thck: 32 % ESV(Teich): 17 ml EF(Teich): 67 % %FS: 36 % SV(Teich): 34 ml LA Diam: 3.1 cm (2.7 - 3.8) RVIDd: 3.1 cm (< 3.3) Ao Diam: 3.4 cm (2.0 - 3.7) AV Cusp: 2.5 cm (1.5 - 2.6) EPSS: 0.4 cm MV E Teto: 0.56 m/s MV DecT: 228 ms MV Dec [place]: 2.5 m/s MV A Teto: 0.80 m/s MV E/A Ratio: 0.70 MV PHT: 66 ms AV Vmax: 1.15 m/s AV maxP.33 mmHg TR Vmax: 1.93 m/s TR maxP.91 mmHg RAP: 5.00 mmHg RVSP: 19.91 mmHg MV EF SLOPE: 7.31 mm/s (70 - 150) MV EXCURSION: 12.75 mm (> 18.000) FINDINGS -------- Sinus rhythm. This was a technically adequate study. The left ventricular size is normal. There is borderline concentric left ventricular hypertrophy. Overall left ventricular systolic function is normal with, an EF between 60 - 65 %. The right ventricle is normal in size. The left atrial size is normal. The right atrium is normal in size. Interatrial and interventricular septum intact. The aortic valve is trileaflet and appears structurally normal. The mitral valve is normal. The tricuspid valve appears structurally normal. Trace/mild (physiologic) pulmonic regurgitation. The aortic root size is normal. IVC Not well visulized. There is no pericardial effusion. CONCLUSIONS -------- 1. The left ventricular size is normal. 2. There is borderline concentric left ventricular hypertrophy. 3. Overall left ventricular systolic function is normal with, an EF between 60 - 65 %. 4. Trace/mild (physiologic) pulmonic regurgitation. 5. There is no pericardial effusion. PHOTOGRAPHER APPRENTICE: Maria D Willingham RDCS
--- NOTE | 2020-06-12 14:22 | P.CNNES ---
History of Present Illness Consult date: 06/12/20 Requesting physician: Chon Hodgson Reason for Consult: stroke for visual field loss History of Present Illness: This is an 79-year-old right-handed woman with medical history of controlled hypertension, hyperlipidemia, chronic tinnitus osteoarthritis and that presented emergency department on the 06/11/2020 at the 14:30 with complaint of visual field defect in both eyes. Patient stated that the she is having left upper quadrant the field defect in both eyes. This started around 945pm on 06/10/2020 she stated that this happened all of a sudden. She denies any associated other neurological problems with this. She denied of any weakness or numbness or slurring the speech or any headaches associated with this. Patient denied of any headaches. He eventually saw an controls project engineer and the he felt that she had a stroke and he notified her to go the hospital. She stated that that she had history of migraines with visual auras but that resolved the humerus years ago since the she had menopause. Currently she denies of any headaches. At home the patient is on aspirin 81 mg and Crestor 10 mg daily. She is compliant checking her blood pressure on a daily basis. She denies of any tobacco use and socially drinks alcohol. She said that the she lives with her and that she's a one that taking care of him. She denies any history of strokes in the past or TIAs. Denies any history of atrial fi brillation or flutter in the past. Patient does follow up with a electric locomotive crane operator and on a yearly basis for many years and she says she just visits to monitor. Not in any anticoagulation. She stated that the in the past when she was on the Lipitor more than 10 mg that she had muscle aches and pain therefore she only takes Crestor 10 mg. Workup in the hospital consisted of: Initial vitals: Blood pressure 150/91, heart rate of 101, temperature of 99.2 Fahrenheit oral, respiratory of 16, pulse ox of 94 L at room air. Patient had that a CT of the head and it was reported as there is decreased att enuation within the right occipital lobe compatible with acute CVA. No evidence for hemorrhagic transformation. I personally reviewed that a CT of the head and I felt this was not acute but more like a subacute infarct over the right occipital. CT angiography of the head and neck was reported as no significant diameter reduction to account for the patient's symptoms. EKG was reported as normal sinus rhythm. Minimal voltage criteria for left ventricular may be normal variant. Possible inferior infarct, age undetermined. Abnormal EKG. Patient initial white blood cells 14.6 and it's slightly neutrophilic. Review of Systems Review of system: The 12 point system was reviewed and apparent positive and negative per HPI. Past Medical History Past Medical History: GERD/Reflux, Hyperlipidemia, Hypertension, Osteoarthritis (OA) Additional Past Medical History / Comment(s): HX PRE-CA SKIN. 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.MIGRAINE HEADACHE History of Any Multi-Drug Resistant Organisms: None Reported Date of last positivie culture/infection: 11/24/18 MDRO Source:: URINE Past Surgical History: Adenoidectomy, Tonsillectomy, Tubal Ligation Additional Past Surgical History / Comment(s): breast biopsy Past Anesthesia/Blood Transfusion Reactions: No Reported Reaction Past Psychological History: No Psychological Hx Reported Smoking Status: Never smoker Past Alcohol Use History: Occasional Past Drug Use History: None Reported - Past Family History Father Family Medical History: Pulmonary Embolus Sister(s) Family Medical History: Pulmonary Embolus Medications and Allergies Home Medications Medication Instructions Recorded Confirmed Type Aspirin 81 mg PO HS 03/21/15 06/11/20 History Pantoprazole Sodium [Protonix] 40 mg PO DAILY 03/21/15 06/11/20 History Amitriptyline HCl [Elavil] 50 mg PO HS 06/11/20 06/11/20 History Ascorbic Acid [Vitamin C] 1,000 mg PO DAILY 06/11/20 06/11/20 History Cholecalciferol [Vitamin D3 (25 2,000 unit PO DAILY 06/11/20 06/11/20 History Mcg = 1000 Iu)] Cranberry Fruit Extract [Cranberry] 500 mg PO DAILY 06/11/20 06/11/20 History L.acidoph,Paracasei, B.lactis 1 cap PO DAILY 06/11/20 06/11/20 History [Probiotic] Lysine [l-Lysine] 500 mg PO DAILY 06/11/20 06/11/20 History [place]-3 Fatty Acids/Fish Oil [Fish 1 cap PO DAILY 06/11/20 06/11/20 History Oil 1,000 mg Softgel] Rosuvastatin Calcium [Crestor] 10 mg PO HS 06/11/20 06/11/20 History Zinc 50 mg PO DAILY 06/11/20 06/11/20 History hydroCHLOROthiazide 25 mg PO DAILY 06/11/20 06/11/20 History Allergies Allergy/AdvReac Type Severity Reaction Status Date / Time clindamycin [From Cleocin] Allergy Rash/Hives Verified 06/11/20 16:56 clindamycin HCl Allergy Itching Verified 06/11/20 16:56 [From Cleocin] clindamycin palmitate HCl Allergy Itching Verified 06/11/20 16:56 [From Cleocin] clindamycin phosphate Allergy Itching Verified 06/11/20 16:56 [From Cleocin] nitrofurantoin Allergy Itching Verified 06/11/20 16:56 [From Furadantin] Penicillins Allergy Rash/Hives Verified 06/11/20 16:56 Physical Examination - Vital Signs Vital Signs: Vital Signs Temp Pulse Pulse Resp BP BP Pulse Ox 06/12/20 09:08 98.9 F 78 18 105/55 94 L 06/12/20 04:00 98.4 F 84 16 95/50 96 06/12/20 00:00 98.2 F 78 17 102/45 96 06/11/20 20:06 98.4 F 84 17 136/78 94 L 06/11/20 18:55 82 12 131/82 95 06/11/20 17:59 83 12 136/87 93 L 06/11/20 16:00 99 16 133/79 95 06/11/20 15:45 97 16 142/85 99 06/11/20 15:32 87 14 133/96 96 06/11/20 15:23 84 16 137/82 98 06/11/20 14:33 99.2 F 101 H 16 158/91 94 L Intake and Output 06/11/20 06/12/20 06/12/20 22:59 06:59 14:59 Output Total 600 Balance -600 Output: Urine 600 Other: Weight 78.018 kg 77.1 kg GENERAL: The patient is lying in bed and is not in acute distress. CHEST: The heart rate is regular rate rhythm. No murmurs to auscultation. No carotid bruit bilaterally. LUNG: Clear to auscultation bilaterally no wheezing noted throughout. Not labored breathing. ABDOMEN/GI: Bowel sounds present in all 4 quadrants. No tenderness to palpation throughout. NEUROLOGICAL: Higher mental function: The patient is awake, alert, oriented to self, place and time. Patient is following commands. No aphasia and no neglect. Cranial nerves: The pupils are round, equal (3-4mm) and reactive to light and accommodation. Visual arnett left upper quadrant hemianopia to confrontation. Extraocular movement is intact no nystagmus is noted. Facial sensation is normal to touch throughout. The facial strength is normal throughout. Hearing is normal bilaterally to hand rub. Tongue is midline and moved [id number] without any difficulty. No dysarthria is noted. Shoulder shrug is normal bilaterally. Motor: Gait is normal with normal arm swings. The strength is 5 over 5 throughout. Normal tone and bulk. Cerebellum: Normal finger to nose, heel to miranda bilaterally. Sensation: Sensation is normal to touch throughout. Reflexes (right/left): 2+ throughout bilateral upper extremities while 1+ throughout lower extremities. Plantars are downgoing bilaterally. Results POC glucose is 103. Lipid profile is triglycerides 163, cholesterol is 132, LDL is 60 and HDL is 39. AST of 40 and ALTs of 27. Ablation study: PT of 10.1, INR 1.0, PTT of 24.6. 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 Hypertension Hyperlipidemia Borderline diabetes Plan: MR the brain is not needed since the the stroke is seen on the CT of the head that. Patient is currently on aspirin 325 daily (home dose is 81mg) daily and was started on Plavix 75 mg daily in the ED. I will lead change the aspirin from 325 2. Home dose of 81 and continue Plavix, she'll be on dual antiplatelets for 21 days and then discontinue aspirin 81 mg but to be primarily on Plavix afterwards. On Lipitor 20 mg daily (home dose is 10mg). I will change her back on Lipitor 10 mg that she stated that higher than him milligrams causes her to have muscle cramps and pain. Upon discharge she can go back to the Crestor 10 mg. 2-D echo is ordered by the primary team is pending Cardiology is a consulted. And that they recommended placing the patient on the cardiac monitoring for 30 days. Continue cardiac monitoring continue Neuro checks every 4 hours. PT/OT and TIP CEMENTER are consulted. TSH is 3.48 on 03/07/2020 and that hemoglobin A1c is 6.1. I spoke with the cardiology nurse practitioner (Marianne), and she notified me that the there is no Holter monitor and therefore the the patient can be discharged and have the Holter monitor up until 4:30 PM today and outpatient setting or she will get the Holter monitor as an outpatient the this coming up Wednesday. Discussed this with the patient and that she stated that the she doesn't have enough time to make it that to get the Holter monitor as an outpatient today and therefore she is in agreement of stable more day and she'll be discharged and the attempting of getting the Holter monitor placed that this coming up Wednesday (and will be on it for 30 days). Neurology perspective if the patient the has no worsening of her neurological symptoms or no no Neurological symptoms she is cleared for discharge the tomorrow (06/13/2020 in the a.m.). Patient needs to follow-up with a neurologist within 1-2 weeks after discharge. She needs to continue to follow up with an controls project engineer and follow-up with the cardiologists. Thank you for the consultation. Sudarshan Castillo M.D. Neuro-hospitalist Time with Patient: Greater than 30
--- NOTE | 2020-06-12 17:10 | P.PN ---
Subjective Progress Note Date: 06/12/20 Cuauhtemoc Blake, is an 79-year-old female who presented to [facility] emergency room due to sudden loss of vision in the left eye patient was seen by her wagon driver salesperson and was told that there was no abnormality on her eye exam she was referred to emergency room, patient was evaluated in the emergency room by Dr. Hodgson, her vital exam on presentation revealed a temperature of 99.2 pulse 101 respiration 16 and her pulse ox was 94% on room air. White blood count was elevated at 14.6 and AST was slightly elevated at 40 EKG was done in the emergency room and revealed normal sinus rhythm, CT angiogram of the head and neck did not reveal any abnormality , computed tomography scan of the brain revealed evidence of decreased attenuation within the right occipital lobe compatible with acute CVA no evidence for hemorrhagic transformation, patient was started on oral Plavix and aspirin in the emergency room she was admitted to telemetry floor, echocardiogram was ordered cardiology and neurology consultation were requested. Patient denies any previous history of cardiovascular disease or stroke in the past, she stated that she had an episode of chest pain 10 years ago at that time she [facility] but never had any diagnosis of myocardial infarction and coronary artery disease or congestive heart failure in the past. On review of systems patient is complaining of partial loss of vision in the lateral vision of the left eye she is also complaining of headache otherwise she denies any complaints there is no fever or chills no dizziness, no chest pain no shortness of breath no cough no nausea or vomiting no abdominal pain no diarrhea no blood in the stools no burning with urination no frequency or urgency and no hematuria there is no change in her speech or her gait there is no weakness or numbness in any of the extremities. On 06/12/2020 patient was seen and examined on the medical floor she is alert and oriented 3 in no apparent distress he is still having difficulty with her vision without any change since yesterday otherwise she denies any complaints there is no fever or chills no headache or dizziness no chest pain no shortness of breath no cough no nausea or vomiting no abdominal pain no diarrhea no blood in the stools no burning with urination no frequency or urgency and no hematuria no weakness or numbness in any of the extremity no change in speech or gait Objective - Vital Signs Vital signs: Vital Signs Temp 98.5 F 06/12/20 16:00 Pulse 73 06/12/20 16:00 Resp 16 06/12/20 16:00 BP 100/58 06/12/20 16:00 Pulse Ox 98 06/12/20 16:00 Intake & Output 06/11/20 06/12/20 06/12/20 18:59 06:59 18:59 Output Total 600 Balance -600 Weight 78.018 kg 77.1 kg Output: Urine 600 - Exam On physical exam patient is alert and oriented 3 in no apparent distress HEENT head normocephalic and atraumatic Neck is supple no JVD no goiter no lymphadenopathy Chest exam reveals a few scattered crackles no wheezing Cardiac exam reveals regular heart sounds S1 and S2 no gallops no murmurs Abdomen is soft nontender no organomegaly with normal bowel sounds Extremity exam reveals no edema no cyanosis or clubbing Neurological examination reveals loss of vision in the lateral left eye visual field Otherwise no gross focal neurological deficit - Labs CBC & Chem 7: 06/11/20 15:05 06/11/20 15:05 Labs: Abnormal Lab Results - Last 24 Hours (Table) 06/11/20 06/12/20 Range/Units 23:02 09:23 Triglycerides 163 H (<150) mg/dL HDL Cholesterol 39 L (40-60) mg/dL Urine Blood Small H (Negative) Ur Leukocyte Esterase Small H (Negative) Urine WBC 8 H (0-5) /hpf Assessment and Plan Plan: 1. 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 Leukocytosis will check chest x-ray and urine analysis will monitor progress closely 3. Underlying history of hyperlipidemia maintained on Lipitor continue 4. Underlying history of hypertension home medications reviewed and reordered 5. Underlying history of migraine headache Echocardiogram ordered Consultation with neurology and cardiology requested, cardiology input reviewed Awaiting neurology consult Medication reviewed and reordered Will follow closely For DVT prophylaxis patient started on Lovenox subcu For GI prophylaxis Protonix
[2020-06-12] MEDS ORDERED: ATORVASTATIN 10 MG TAB PO SCH (21:00)
[2020-06-12] MEDS: AMITRIPTYLINE HCL 50 MG TAB PO SCH (22:32)
[2020-06-13] MEDS: PANTOPRAZOLE 40 MG TABLET PO SCH (06:25)
[2020-06-13 08:21] VITALS: RESP 20
[2020-06-13] MEDS: ASCORBIC ACID 500 MG TAB PO SCH (08:24)
[2020-06-13] MEDS: CHOLECALCIFEROL 1,000 UNIT TAB PO SCH (08:24)
[2020-06-13] MEDS: hydroCHLOROthiazide 25 MG TAB PO SCH (08:24)
[2020-06-13] MEDS: CLOPIDOGREL 75 MG TAB PO SCH (08:24)
[2020-06-13] MEDS: LACTOBACILLUS ACIDOPH & BULGAR 1 EACH PACKET PO SCH (08:24)
[2020-06-13] MEDS: ENOXAPARIN 40 MG/0.4 ML SYRINGE SQ SCH (08:24)
[2020-06-13] MEDS ORDERED: ASPIRIN 81 MG PO SCH (09:00)
--- NOTE | 2020-06-13 10:17 | P.PN ---
Subjective Progress Note Date: 06/13/20 HISTORY OF PRESENT ILLNESS: 06/12/2020 79-year-old female with a past medical history significant for hypertension and hyperlipidemia. Patient follows in the office with Dr. Burnette. We've been asked to see the patient in consultation for CVA. Patient examined this morning at the bedside.Patient was bending down Wednesday right to get something from her nightstand. When she stood up and looked in the mirror she could only see half her face. she has a history of migraines and has visual losses when she gets migraines so she did not think much of it and went to bed. When she woke up the following morning she was still having issues with her vision so she went to see her eye doctor who told her everything looked okay from his standpoint and thought she might be having a stroke and recommended that she come to the hospital for further evaluation. This morning the patient is still having vision loss but states it is improved significantly. She denies any weakness of any of her extremities. She denies chest pain or pressure. She denies shortness of breath. She denies any previous history of stroke. She denies any previous heart disease. She states she was hospitalized many years ago for what was thought to be a heart attack but she underwent testing and states everything was normal. 06/13/2020 Patient examined at bedside. Patient states she is still having some loss of vision but it is improved from admission. She denies chest pain or pressure. She denies shortness of breath. Vital signs are stable. Telemetry does not reveal any evidence of atrial fibrillation. Echocardiogram completed reveals EF between 60 and 65%. PHYSICAL EXAM: VITAL SIGNS: Reviewed. GENERAL: Well-developed in no acute distress. HEENT: Head is normocephalic. Pupils are equal, round. Sclerae anicteric. Mucous membranes of the mouth are moist. Neck supple. No JVD or thyromegaly LUNGS: Respirations even and unlabored. Lungs essentially clear to auscultation bilaterally. HEART: Regular rate and rhythm. S1 and S2 heard. ABDOMEN: Soft. Nondistended. Nontender. EXTREMITIES: Normal range of motion. No clubbing or cyanosis. Peripheral pulses intact. No lower extremity edema NEUROLOGIC: Awake and alert. Oriented x 3. Patient with loss of visual arnett upon examination. ASSESSMENT: Acute CVA right occipital lobe Hypertension Hyperlipidemia PLAN: Continue aspirin and Plavix Neurology following Continue telemetry monitoring to assess for any arrhythmias Patient has an appointment to have event monitor placed WednesdayJune 17 at 10am at [facility]. Nurse practitioner note has been reviewed by physician. Signing provider agrees with the documented findings, assessment, and plan of care. Objective - Vital Signs Vital signs: Vital Signs Temp 98.7 F 06/13/20 08:21 Pulse 71 06/13/20 08:21 Resp 20 06/13/20 08:21 BP 108/57 06/13/20 08:21 Pulse Ox 93 L 06/13/20 08:21 Intake & Output 06/12/20 06/13/20 06/13/20 18:59 06:59 18:59 Intake Total 720 240 240 Balance 720 240 240 Weight 75.5 kg Intake: Oral 720 240 240 Other: Voiding Method Toilet Toilet # Voids 1 2 # Bowel Movements 0 - Labs CBC & Chem 7: 06/11/20 15:05 06/11/20 15:05 Labs: Abnormal Lab Results - Last 24 Hours (Table) 06/12/20 Range/Units 09:23 Triglycerides 163 H (<150) mg/dL HDL Cholesterol 39 L (40-60) mg/dL
[2020-06-13 11:47] VITALS: BP 131/82; PULSE 78; TEMP 97.9
--- NOTE | 2020-06-13 12:54 | P.DS ---
Providers Date of admission: 06/11/20 16:21 Expected date of discharge: 06/13/20 Attending physician: Jaime Archuleta Consults: 06/11/20 16:21 Consult Physician Routine Consulting Provider: Sudarshan Castillo Consult Reason/Comments: CVA Do you want consulting provider notified?: Yes 06/11/20 19:02 Consult Physician Routine Consulting Provider: Clara Joel Consult Reason/Comments: CVA Do you want consulting provider notified?: Yes Primary care physician: Antonieta Santa Hospital Course: Diagnosis on discharge: 1. 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 Leukocytosis will check chest x-ray and urine analysis will monitor progress closely 3. Underlying history of hyperlipidemia maintained on Lipitor continue 4. Underlying history of hypertension home medications reviewed and reordered 5. Underlying history of migraine headache Hospital course: Cuauhtemoc Blake, is an 79-year-old female who presented to [facility] emergency room due to sudden loss of vision in the left eye patient was seen by her transactional paralegal and was told that there was no abnormality on her eye exam she was referred to emergency room, patient was evaluated in the emergency room by Dr. Hodgson, her vital exam on presentation revealed a temperature of 99.2 pulse 101 respiration 16 and her pulse ox was 94% on room air. White blood count was elevated at 14.6 and AST was slightly elevated at 40 EKG was done in the emergency room and revealed normal sinus rhythm, CT angiogram of the head and neck did not reveal any abnormality , computed tomography scan of the brain revealed evidence of decreased attenuation within the right occipital lobe compatible with acute CVA no evidence for hemorrhagic transformation, patient was started on oral Plavix and aspirin in the emergency room she was admitted to telemetry floor, echocardiogram was ordered cardiology and neurology consultation were requested. Patient denies any previous history of cardiovascular disease or stroke in the past, she stated that she had an episode of chest pain 10 years ago at that time she [facility] but never had any diagnosis of myocardial infarction and coronary artery disease or congestive heart failure in the past. On review of systems patient is complaining of partial loss of vision in the lateral vision of the left eye she is also complaining of headache otherwise she denies any complaints there is no fever or chills no dizziness, no chest pain no shortness of breath no cough no nausea or vomiting no abdominal pain no diarrhea no blood in the stools no burning with urination no frequency or urgency and no hematuria there is no change in her speech or her gait there is no weakness or numbness in any of the extremities. On 06/12/2020 patient was seen and examined on the medical floor she is alert and oriented 3 in no apparent distress he is still having difficulty with her vision without any change since yesterday otherwise she denies any complaints there is no fever or chills no headache or dizziness no chest pain no shortness of breath no cough no nausea or vomiting no abdominal pain no diarrhea no blood in the stools no burning with urination no frequency or urgency and no hematuria no weakness or numbness in any of the extremity no change in speech or gait. On 06/13/2020 patient was seen and examined on the medical floor she is alert and oriented 3 she reports some improvement in the lateral vision of the left eye otherwise she denies any complaints there is no fever or chills no headache or dizziness no chest pain no shortness of breath no cough no nausea or vomiting no abdominal pain no diarrhea no blood in the stools no burning with urination no frequency or urgency and no hematuria patient was seen by neurology and was cleared for discharge Plavix 75 mg by mouth once daily was added to her medication regimen during this hospitalization otherwise no change patient will follow-up with cardiology for 30 day event monitor she should follow-up with cardiology neurology and her primary care physician in the next 1-2 weeks Plan - Discharge Summary Discharge Rx Participant: No New Discharge Prescriptions: New Clopidogrel [Plavix] 75 mg PO DAILY tab Continue Pantoprazole Sodium [Protonix] 40 mg PO DAILY Aspirin 81 mg PO HS Cholecalciferol [Vitamin D3 (25 Mcg = 1000 Iu)] 2,000 unit PO DAILY hydroCHLOROthiazide 25 mg PO DAILY Zinc 50 mg PO DAILY [place]-3 Fatty Acids/Fish Oil [Fish Oil 1,000 mg Softgel] 1 cap PO DAILY Ascorbic Acid [Vitamin C] 1,000 mg PO DAILY Rosuvastatin Calcium [Crestor] 10 mg PO HS Cranberry Fruit Extract [Cranberry] 500 mg PO DAILY Amitriptyline HCl [Elavil] 50 mg PO HS Lysine [l-Lysine] 500 mg PO DAILY L.acidoph,Paracasei, B.lactis [Probiotic] 1 cap PO DAILY Discharge Medication List Aspirin 81 mg PO HS 03/21/15 [History] Pantoprazole Sodium [Protonix] 40 mg PO DAILY 03/21/15 [History] Amitriptyline HCl [Elavil] 50 mg PO HS 06/11/20 [History] Ascorbic Acid [Vitamin C] 1,000 mg PO DAILY 06/11/20 [History] Cholecalciferol [Vitamin D3 (25 Mcg = 1000 Iu)] 2,000 unit PO DAILY 06/11/20 [History] Cranberry Fruit Extract [Cranberry] 500 mg PO DAILY 06/11/20 [History] L.acidoph,Paracasei, B.lactis [Probiotic] 1 cap PO DAILY 06/11/20 [History] Lysine [l-Lysine] 500 mg PO DAILY 06/11/20 [History] [place]-3 Fatty Acids/Fish Oil [Fish Oil 1,000 mg Softgel] 1 cap PO DAILY 06/11/20 [History] Rosuvastatin Calcium [Crestor] 10 mg PO HS 06/11/20 [History] Zinc 50 mg PO DAILY 06/11/20 [History] hydroCHLOROthiazide 25 mg PO DAILY 06/11/20 [History] Clopidogrel [Plavix] 75 mg PO DAILY tab 06/13/20 [Rx] Follow up Appointment(s)/Referral(s): Antonieta Santa MD [Primary Care Provider] - 1-2 days Marvin Burnette MD [STAFF PHYSICIAN] - 1 Week Activity/Diet/Wound Care/Special Instructions: Patient has an appointment scheduled for WednesdayJune 17 10am at [facility] office to picker packer event monitor
--- NOTE | 2020-06-13 13:23 | P.PN ---
Subjective Progress Note Date: 06/13/20 She was seen at bedside and she stated that she felt like her visual arnett are improving and she feels like she is able to read somewhat better. Otherwise she denies any neurological symptoms appear denies any new weakness, numbness. Denies any headache. Denies any slurring of her speech. Objective - Vital Signs Vital signs: Vital Signs Temp 98.7 F 06/13/20 08:21 Pulse 71 06/13/20 08:21 Resp 20 06/13/20 08:21 BP 108/57 06/13/20 08:21 Pulse Ox 93 L 06/13/20 08:21 Intake & Output 06/12/20 06/13/20 06/13/20 18:59 06:59 18:59 Intake Total 720 240 240 Balance 720 240 240 Weight 75.5 kg Intake: Oral 720 240 240 Other: Voiding Method Toilet Toilet # Voids 1 2 # Bowel Movements 0 - Exam GENERAL: The patient is lying in bed and is not in acute distress. NEUROLOGICAL: Higher mental function: The patient is awake, alert, oriented to self, place and time. Patient is following commands. No aphasia and no neglect. Cranial nerves: The pupils are round, equal (3-4mm) and reactive to light and accommodation. Visual arnett left upper quadrant hemianopsia to confrontation. Extraocular movement is intact no nystagmus is noted. Facial sensation is normal to touch throughout. The facial strength is normal throughout. Hearing is normal bilaterally to hand rub. Tongue is midline and moved [id number] without any difficulty. No dysarthria is noted. Shoulder shrug is normal bilaterally. Motor: Gait is normal with normal arm swings. The strength is 5 over 5 throughout. Normal tone and bulk. Cerebellum: Normal finger to nose, heel to miranda bilaterally. Sensation: Sensation is normal to touch throughout. Reflexes (right/left): 2+ throughout bilateral upper extremities while 1+ throughout lower extremities. Plantars are downgoing bilaterally. 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 Hypertension Hyperlipidemia Borderline diabetes Plan: MR the brain is not needed since the the stroke is seen on the CT of the head that. Continue aspirin 81mg daily (home dose) and continue Plavix, she'll be on dual antiplatelets for 21 days and then discontinue aspirin 81 mg but to be indefinitely on Plavix afterwards. On Lipitor 20 mg daily (home dose is 10mg). I will change her back on Lipitor 10 mg that she stated that higher dose than 1 0mg give her side-effects with muscle pain. Upon discharge she can go back to the Crestor 10 mg. 2-D echo: borderline concentric left ventricular hypertrophy. Ejection fraction of 60-65%. Cardiology is a consulted. And that they recommended placing the patient on the holter cardiac monitoring for 30 days this coming up Wednesday. Continue cardiac monitoring continue Neuro checks every 4 hours. PT/OT and BACK HAND are consulted. TSH is 3.48 on 03/07/2020 and that hemoglobin A1c is 6.1. She is in agreement of once discharged she will have Holter monitor placed this coming up Wednesday (and will be on it for 30 days) since we do not have any monitors in the hospital per Cardiology Nurse Practioner. Neurological symptoms she is cleared for discharge today. Patient needs to follow-up with a neurologist within 1-2 weeks after discharge. She needs to continue to follow up with an water treatment technician and follow-up with the cardiologists. Sudarshan Castillo M.D. Neuro-hospitalist Time with Patient: Less than 30
== END 2020-06-13 16:20 | disposition home or self-care (01) | DRG 66 ==
LOC: EDBD → MERGE 14:30 → EC 14:30 → 3SCARD 16:21
PROVIDERS: ADMIT Internal Medicine; ATTEND Internal Medicine
DX: I63.40 Cerebral infarction due to embolism of unspecified cerebral artery (principal); E78.5 Hyperlipidemia, unspecified; H54.62 Unqualified visual loss, left eye, normal vision right eye; H53.40 Unspecified visual field defects; I10 Essential (primary) hypertension; R73.03 Prediabetes; K21.9 Gastro-esophageal reflux disease without esophagitis; M19.90 Unspecified osteoarthritis, unspecified site; G43.109 Migraine with aura, not intractable, without status migrainosus; D72.829 Elevated white blood cell count, unspecified; Z79.82 Long term (current) use of aspirin; Z79.899 Other long term (current) drug therapy; Z88.1 Allergy status to other antibiotic agents; Z88.0 Allergy status to penicillin; Z90.89 Acquired absence of other organs; Z98.51 Tubal ligation status; Z82.49 Family history of ischemic heart disease and other diseases of the circulatory system
CPT/HCPCS: 36415; 70450; 70496; 70498; 71046; 80053; 80061; 81001; 84484; 85025; 85610; 85730; 93005; 93306; 96360; 96361; 99291

== ENCOUNTER → 2020-08-07 | Outpatient (CLI) | payer MEDICARE ==
--- NOTE | 2020-08-07 17:01 | MR ---
EXAMINATION TYPE: MR brain wo con DATE OF EXAM: 08/07/2020 COMPARISON: CT brain 06/11/2020 HISTORY: Rt side weakness, stroke CONTRAST: Performed utilizing 0 mL intravenous Gadavist gadolinium contrast. TECHNIQUE: Multiplanar, multiecho imaging on a 3.0 Negra magnet is performed through the brain. Stud y is performed within 24 hours of arrival to the hospital. The craniovertebral junction is normal. The pituitary is normal. Diffusion-weighted imaging is performed. No abnormal hyperintensity is present to suggest an acute i ntracranial infarct or acute ischemic change. There is an old infarct within the right inferior occipital lobe. This was present on the CT examinat ion. There are scattered areas of hyperintensity on T2 and inversion recovery weighted sequences compatibl e with chronic white matter ischemic type changes. This would include the brainstem. Periventricular white matter and centrum semiovale. Ventricles and sulci are prominent for the patient age. IMPRESSIONS: 1. Chronic appearing deep white matter ischemic changes. 2. Old right occipital lobe infarct
== END | disposition home or self-care (01) ==
LOC: RADMRIMAIN 11:31
PROVIDERS: ATTEND Psychiatry & Neurology Neurology
DX: R90.82 White matter disease, unspecified (principal); Z86.73 Personal history of transient ischemic attack (TIA), and cerebral infarction without residual deficits
CPT/HCPCS: 70551

== ENCOUNTER 2020-10-31 17:51 | Observation (INO) | payer MEDICARE ==
[2020-10-31 18:06] LABS: Glucose,Whole Blood 90 mg/dL (75-99)
--- NOTE | 2020-10-31 18:51 | ED ---
General Adult HPI - General Chief complaint: Neuro Symptoms/Deficit Stated complaint: Stroke Time Seen by Provider: 10/31/20 18:32 Source: EMS Mode of arrival: EMS Limitations: no limitations - History of Present Illness Initial comments: Dictation was produced using [employer] dictation software. please excuse any grammatical, word or spelling errors. This patient was cared for during a federal and state declared state of emergency secondary to Covid 19 Chief Complaint: 80-year-old female presents with visual disturbance starting at 4:30 PM History of Present Illness: Is 80-year-old female she has past medical history of cerebrovascular accident, hypertension dyslipidemia. She states that 4:30 PM she was looking down fixing a salad all of a sudden negative. As though the left side of her vision became distorted. She states that she was looking down trying to make a salad on a table and it feels like to table started to turn 45. States that she's had chronic visual disturbances May last year however she's never had issues like this. She called her primary care doctor results come to the emergency department. Patient states that she denies any numbness and paresthesias to the arms or legs. She drip. She states that her symptoms remind her of a stroke that she was diagnosed with back in May. The ROS documented in this emergency department record has been reviewed and confirmed by me. Those systems with pertinent positive or negative responses have been documented in the HPI. All other systems are other negative and/or noncontributory. PHYSICAL EXAM: General Impression: Alert and oriented x3, not in acute distress HEENT: Normocephalic atraumatic, extra-ocular movements intact, pupils equal and reactive to light bilaterally, mucous membranes moist. Cardiovascular: Heart regular rate and rhythm Chest: Able to complete full sentences, no retractions, no tachypnea Abdomen: abdomen soft, non-tender, non-distended, no organomegaly Musculoskeletal: Pulses present and equal in all extremities, no peripheral edema Motor: no focal deficits noted Neurological: CN II-XII grossly intact, no focal motor or sensory deficits noted, NIH of 1 for partial hemianopia but her visual arnett are intact. Patient is able to stand. No nystagmus, no extremity paresthesias or weakness. No drift. No aphasia, no dysarthria. No ataxia. Gait intact. Patient symptoms were reproduced with having her stand and looked down. She was sat back on the bed states she "does not feel right." Skin: Intact with no visualized rashes Psych: Normal affect and mood ED course: 80-year-old female presents with acute visual is disturbance starting at 4:30 PM. Click or presentation consistent with acute on chronic visual changes. Patient's symptoms are reproduced. She however does strongly suggest that her symptoms remind her when she was diagnosed with a stroke several months ago. All signs upon arrival are within acceptable limits. Chart review shows that patient had MRI in July of this year showing old occipital infarct. Patient not candidate for TPA because her NIH is 1. Risk outweigh the benefits. Code stroke was not called. Computed tomography scan of brain and CT angios the head and neck was obtained showing no acute processes. Laboratory evaluation obtained showing no acute processes. Patient given aspirin. Disposition options were discussed she agrees for admission with neurology consultation. At patient is reevaluated found to be stable medical condition or possible 9:30 PM. EKG interpretation: Ventricular rate 74, normal sinus rhythm, OH interval 28, QRS 82, QTc 450. No OH prolongation, no QTC prolongation, no ST or T-wave changes noted. EKG compared to 06/11/2020 showing no changes. Overall, this EKG is unremarkable - Related Data Home Medications Medication Instructions Recorded Confirmed Pantoprazole Sodium [Protonix] 40 mg PO DAILY 03/21/15 10/31/20 Amitriptyline HCl [Elavil] 50 mg PO HS 06/11/20 10/31/20 Ascorbic Acid [Vitamin C] 1,000 mg PO DAILY 06/11/20 10/31/20 Cholecalciferol [Vitamin D3 (25 1,000 unit PO HS 06/11/20 10/31/20 Mcg = 1000 Iu)] Cranberry Fruit Extract [Cranberry] 500 mg PO HS 06/11/20 10/31/20 L.acidoph,Paracasei, B.lactis 1 cap PO HS 06/11/20 10/31/20 [Probiotic] Lysine [l-Lysine] 500 mg PO DAILY 06/11/20 10/31/20 [place]-3 Fatty Acids/Fish Oil [Fish 1 cap PO DAILY 06/11/20 10/31/20 Oil 1,000 mg Softgel] Rosuvastatin Calcium [Crestor] 10 mg PO HS 06/11/20 10/31/20 Zinc 50 mg PO HS 06/11/20 10/31/20 hydroCHLOROthiazide 25 mg PO DAILY 06/11/20 10/31/20 Calcium Carbonate [Calcium] 600 mg PO DAILY 10/31/20 10/31/20 Loratadine [Claritin] 10 mg PO DAILY PRN 10/31/20 10/31/20 Meclizine HCl 25 mg PO QID PRN 10/31/20 10/31/20 Previous Rx's Medication Instructions Recorded Clopidogrel [Plavix] 75 mg PO DAILY tab 06/13/20 Allergies Allergy/AdvReac Type Severity Reaction Status Date / Time clindamycin [From Cleocin] Allergy Rash/Hives Verified 10/31/20 20:03 clindamycin HCl Allergy Itching Verified 10/31/20 20:03 [From Cleocin] clindamycin palmitate HCl Allergy Itching Verified 10/31/20 20:03 [From Cleocin] clindamycin phosphate Allergy Itching Verified 10/31/20 20:03 [From Cleocin] nitrofurantoin Allergy Itching Verified 10/31/20 20:03 [From Furadantin] Penicillins Allergy Rash/Hives Verified 10/31/20 20:03 Review of Systems ROS Statement: Those systems with pertinent positive or pertinent negative responses have been documented in the HPI. ROS Other: All systems not noted in ROS Statement are negative. Past Medical History Past Medical History: GERD/Reflux, Hyperlipidemia, Hypertension, Osteoarthritis (OA) Additional Past Medical History / Comment(s): HX PRE-CA SKIN. 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.MIGRAINE HEADACHE History of Any Multi-Drug Resistant Organisms: None Reported Date of last positivie culture/infection: 11/24/18 MDRO Source:: URINE Past Surgical History: Adenoidectomy, Tonsillectomy, Tubal Ligation Additional Past Surgical History / Comment(s): breast biopsy Past Anesthesia/Blood Transfusion Reactions: No Reported Reaction Past Psychological History: No Psychological Hx Reported Smoking Status: Never smoker Past Alcohol Use History: Occasional Past Drug Use History: None Reported - Past Family History Father Family Medical History: Pulmonary Embolus Sister(s) Family Medical History: Pulmonary Embolus General Exam Limitations: no limitations Course Vital Signs 10/31/20 10/31/20 18:23 20:40 Temperature 98.6 F Pulse Rate 73 85 Respiratory 18 16 Rate Blood Pressure 136/82 145/90 O2 Sat by Pulse 98 94 L Oximetry Medical Decision Making - Lab Data Result diagrams: 10/31/20 18:46 10/31/20 18:46 Lab Results 10/31/20 10/31/20 10/31/20 Range/Units 18:04 18:46 18:46 WBC 9.4 (3.8-10.6) k/uL RBC 4.78 (3.80-5.40) m/uL Hgb 14.7 (11.4-16.0) gm/dL Hct 41.5 (34.0-46.0) % MCV 86.8 (80.0-100.0) fL MCH 30.7 (25.0-35.0) pg MCHC 35.4 (31.0-37.0) g/dL RDW 12.3 (11.5-15.5) % Plt Count 239 (150-450) k/uL MPV 7.2 Neutrophils % 61 % Lymphocytes % 29 % Monocytes % 5 % Eosinophils % 2 % Basophils % 1 % Neutrophils # 5.7 (1.3-7.7) k/uL Lymphocytes # 2.7 (1.0-4.8) k/uL Monocytes # 0.5 (0-1.0) k/uL Eosinophils # 0.2 (0-0.7) k/uL Basophils # 0.1 (0-0.2) k/uL PT 10.9 (9.0-12.0) sec INR 1.0 (<1.2) APTT 25.9 (22.0-30.0) sec Sodium (137-145) mmol/L Potassium (3.5-5.1) mmol/L Chloride (98-107) mmol/L Carbon Dioxide (22-30) mmol/L Anion Gap mmol/L BUN (7-17) mg/dL Creatinine (0.52-1.04) mg/dL Est GFR (CKD-EPI)AfAm (>60 ml/min/1.73 sqM) Est GFR (CKD-EPI)NonAf (>60 ml/min/1.73 sqM) Glucose (74-99) mg/dL POC Glucose (mg/dL) 90 (75-99) mg/dL POC Glu Job Boss Shai Aldana Calcium (8.4-10.2) mg/dL Magnesium (1.6-2.3) mg/dL 10/31/20 Range/Units 18:46 WBC (3.8-10.6) k/uL RBC (3.80-5.40) m/uL Hgb (11.4-16.0) gm/dL Hct (34.0-46.0) % MCV (80.0-100.0) fL MCH (25.0-35.0) pg MCHC (31.0-37.0) g/dL RDW (11.5-15.5) % Plt Count (150-450) k/uL MPV Neutrophils % % Lymphocytes % % Monocytes % % Eosinophils % % Basophils % % Neutrophils # (1.3-7.7) k/uL Lymphocytes # (1.0-4.8) k/uL Monocytes # (0-1.0) k/uL Eosinophils # (0-0.7) k/uL Basophils # (0-0.2) k/uL PT (9.0-12.0) sec INR (<1.2) APTT (22.0-30.0) sec Sodium 136 L (137-145) mmol/L Potassium 3.3 L (3.5-5.1) mmol/L Chloride 102 (98-107) mmol/L Carbon Dioxide 28 (22-30) mmol/L Anion Gap 6 mmol/L BUN 14 (7-17) mg/dL Creatinine 0.87 (0.52-1.04) mg/dL Est GFR (CKD-EPI)AfAm 72 (>60 ml/min/1.73 sqM) Est GFR (CKD-EPI)NonAf 63 (>60 ml/min/1.73 sqM) Glucose 84 (74-99) mg/dL POC Glucose (mg/dL) (75-99) mg/dL POC Glu Job Boss ID Calcium 9.0 (8.4-10.2) mg/dL Magnesium 1.9 (1.6-2.3) mg/dL Disposition Clinical Impression: Visual disturbance Disposition: ADMITTED IP TO THIS [facility] Condition: Fair Referrals: Antonieta Santa MD [Primary Care Provider] - 1-2 days Decision Time: 22:01
[2020-10-31 19:12] LABS: Basophils # (A) 0.1 k/uL (0-0.2); Basophils % (A) 1 %; Eosinophils # (A) 0.2 k/uL (0-0.7); Eosinophils % (A) 2 %; HCT 41.5 % (34.0-46.0); HGB 14.7 gm/dL (11.4-16.0); Lymphocytes # (A) 2.7 k/uL (1.0-4.8); Lymphocytes % (A) 29 %; MCH 30.7 pg (25.0-35.0); MCHC 35.4 g/dL (31.0-37.0); MCV 86.8 fL (80.0-100.0); Mean Platelet Volume 7.2; Monocytes # (A) 0.5 k/uL (0-1.0); Monocytes % (A) 5 %; Neutrophils # (A) 5.7 k/uL (1.3-7.7); Neutrophils % (A) 61 %; Platelet Count 239 k/uL (150-450); RBC 4.78 m/uL (3.80-5.40); RDW 12.3 % (11.5-15.5); WBC 9.4 k/uL (3.8-10.6)
--- NOTE | 2020-10-31 19:14 | XR ---
EXAMINATION: XR chest 1V portable DATE AND TIME: 10/31/2020 7:03 PM CLINICAL INDICATION: PHH; suspect cva TECHNIQUE: AP upright portable COMPARISON: 06/11/2020 FINDINGS: The lungs are clear. The pleural spaces are negative. The cardiac silhouette is not enlarged. The remainder of the mediastinal silhouette is unchanged, aga in showing the tortuous descending thoracic aorta. The skeletal structures and soft tissues are negative for acute findings. IMPRESSION: NO ACUTE PROCESS.
[2020-10-31 19:19] LABS: Magnesium 1.9 mg/dL (1.6-2.3); Potassium 3.3 mmol/L (3.5-5.1)
[2020-10-31 19:31] LABS: Partial Thromboplastin Time 25.9 sec (22.0-30.0); Prothrombin Time 10.9 sec (9.0-12.0)
--- NOTE | 2020-10-31 19:42 | CT ---
EXAMINATION: CT brain wo con DATE AND TIME: 10/31/2020 7:32 PM CLINICAL INDICATION: PHH; visual disturbance, suspect cva TECHNIQUE: Standard departmental protocol; 1012.8 mGy-cm COMPARISON: CT 06/11 20 FINDINGS: The previously seen right occipital lobe hypodensity is redemonstrated, now isodense to CSF and consistent with prior infarction. Subtle low-attenuation in the anterior right frontal lobe deep white matter is redemonstrated without interval change. There is no definite acute attenuation defect. There is no intracranial hemorrhage. No intracranial mass or mass effect. The calvarium is intact. The paranasal sinuses, middle ear cavities, and mastoid sinus air cells are clear. The orbits are unremarkable. IMPRESSION: No definite acute process.
--- NOTE | 2020-10-31 20:29 | CT ---
EXAMINATION TYPE: CT ANGIO HEAD NECK CONTRAST AND WITH 3-D RECONSTRUCTION RENDERINGS DATE OF EXAM: 10/31/2020 HISTORY: Visual disturbance. COMPARISON: CT brain without contrast 10/31/2020 CT DLP: 521.9 mGycm. Automated Exposure Control for Dose Reduction was Utilized. TECHNIQUE: CTA scan of the neck is performed with IV Contrast, patient injected with 65 mL of Isovue 370, axial images are obtained, coronal and sagittal reformatted images are reviewed. Three-D recons tructed images are created on an independent workstation and reviewed. COMPARISON: 06/11/2020 FINDINGS: Carotid/Vascular Structures: The bilateral carotid arterial systems are widely patent without flow-li miting stenoses. The intracranial anterior circulation is widely patent. The bilateral vertebral arterial systems are widely patent, as is the intracranial posterior circulat ion. The dural venous sinuses and venous structures of the neck are unremarkable. The extra vascular structures of the head and neck are negative for acute findings. IMPRESSION: No significant abnormality is seen.
[2020-10-31] MEDS ORDERED: ASPIRIN 81 MG PO STA (21:52)
[2020-10-31] MEDS ORDERED: NALOXONE 0.4 MG/ML 1 ML VIAL IV PRN (21:54)
[2020-11-01] MEDS: AMITRIPTYLINE HCL 50 MG TAB PO SCH ×2 (01:57→20:13)
[2020-11-01] MEDS: MELATONIN 5 MG TABLET PO PRN ×2 (01:57→23:03)
[2020-11-01] MEDS: SODIUM CHLORIDE 0.9% 1,000 ML IV SCH ×2 (06:43→22:42)
[2020-11-01] MEDS: ASCORBIC ACID 500 MG TAB PO SCH (08:27)
[2020-11-01] MEDS: hydroCHLOROthiazide 25 MG TAB PO SCH (08:27)
[2020-11-01] MEDS: CALCIUM CARBONATE 500 MG CHEWABLE PO SCH (08:27)
[2020-11-01] MEDS: PANTOPRAZOLE 40 MG TABLET PO SCH (08:28)
[2020-11-01] MEDS ORDERED: MECLIZINE 25 MG TAB PO PRN (09:00)
[2020-11-01] MEDS ORDERED: LORATADINE 10 MG TAB PO PRN (09:00)
[2020-11-01] MEDS ORDERED: CLOPIDOGREL 75 MG TAB PO SCH (09:00)
[2020-11-01] MEDS ORDERED: NON FORMULARY DRUG (Lysine [L-Lysine] 500 MG Tablet) PO SCH (09:00)
[2020-11-01] MEDS ORDERED: NON FORMULARY DRUG (Omega-3 Fatty Acids/Fish Oil [Fish Oil 1,000 Mg Softgel] 1 EACH Capsul PO SCH (09:00)
[2020-11-01] MEDS ORDERED: TICAGRELOR 90 MG TAB PO STA (10:05)
--- NOTE | 2020-11-01 10:21 | P.HPIM ---
History of Present Illness H&P Date: 11/01/20 Chief Complaint: Acute visual disturbance This is an 80-year-old female patient of Dr. Santa who presented to ER with complaints of acute visual disturbance that started yesterday for 2020 around 4:30 will patient was preparing a salad. Patient reports no other neurological symptoms at that time. Patient reports she does have a past medical history of CVA May in which she has residual vision issues in her right eye. Additional medical history includes GERD, hyperlipidemia, hypertension, osteoarthritis, migraine headaches and carpal tunnel syndrome. Chest x-ray completed showing no acute process. Head CT completed showing no definitive acute process. CT of the neck performed showing no significant abnormality. EKG showing normal sinus rhythm. Neurology services have been consulted. 2-D echo has been ordered repeat labs ordered. At this time patient reports return of normal vision. No others neuro symptoms noted upon exam. Speech is clear memory intact. Patient denies any recent illness. Patient denies nausea vomiting or diarrhea. Patient denies chest pain or shortness breath. Patient denies any urinary burning or frequency. Review of Systems Please refer to HPI otherwise unremarkable Past Medical History Past Medical History: GERD/Reflux, Hyperlipidemia, Hypertension, Osteoarthritis (OA) Additional Past Medical History / Comment(s): HX PRE-CA SKIN. 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 MIGRAINE HEADACHE. History of Any Multi-Drug Resistant Organisms: None Reported Date of last positivie culture/infection: 11/24/18 MDRO Source:: URINE Past Surgical History: Adenoidectomy, Tonsillectomy, Tubal Ligation Additional Past Surgical History / Comment(s): Multiple breast biposy, carpal tunnel surgery, hemmorhoid removal Past Anesthesia/Blood Transfusion Reactions: No Reported Reaction Past Psychological History: No Psychological Hx Reported Smoking Status: Never smoker Past Alcohol Use History: Occasional Past Drug Use History: None Reported - Past Family History Father Family Medical History: Pulmonary Embolus Sister(s) Family Medical History: Pulmonary Embolus Medications and Allergies Home Medications Medication Instructions Recorded Confirmed Type Pantoprazole Sodium [Protonix] 40 mg PO DAILY 03/21/15 10/31/20 History Amitriptyline HCl [Elavil] 50 mg PO HS 06/11/20 10/31/20 History Ascorbic Acid [Vitamin C] 1,000 mg PO DAILY 06/11/20 10/31/20 History Cholecalciferol [Vitamin D3 (25 1,000 unit PO HS 06/11/20 10/31/20 History Mcg = 1000 Iu)] Cranberry Fruit Extract [Cranberry] 500 mg PO HS 06/11/20 10/31/20 History L.acidoph,Paracasei, B.lactis 1 cap PO HS 06/11/20 10/31/20 History [Probiotic] Lysine [l-Lysine] 500 mg PO DAILY 06/11/20 10/31/20 History [place]-3 Fatty Acids/Fish Oil [Fish 1 cap PO DAILY 06/11/20 10/31/20 History Oil 1,000 mg Softgel] Rosuvastatin Calcium [Crestor] 10 mg PO HS 06/11/20 10/31/20 History Zinc 50 mg PO HS 06/11/20 10/31/20 History hydroCHLOROthiazide 25 mg PO DAILY 06/11/20 10/31/20 History Clopidogrel [Plavix] 75 mg PO DAILY tab 06/13/20 10/31/20 Rx Calcium Carbonate [Calcium] 600 mg PO DAILY 10/31/20 10/31/20 History Loratadine [Claritin] 10 mg PO DAILY PRN 10/31/20 10/31/20 History Meclizine HCl 25 mg PO QID PRN 10/31/20 10/31/20 History Allergies Allergy/AdvReac Type Severity Reaction Status Date / Time clindamycin [From Cleocin] Allergy Rash/Hives Verified 10/31/20 20:03 clindamycin HCl Allergy Itching Verified 10/31/20 20:03 [From Cleocin] clindamycin palmitate HCl Allergy Itching Verified 10/31/20 20:03 [From Cleocin] clindamycin phosphate Allergy Itching Verified 10/31/20 20:03 [From Cleocin] nitrofurantoin Allergy Itching Verified 10/31/20 20:03 [From Furadantin] Penicillins Allergy Rash/Hives Verified 10/31/20 20:03 Physical Exam Vitals: Vital Signs Temp Pulse Pulse Pulse Resp BP BP 11/01/20 08:00 97.9 F 79 18 112/61 11/01/20 04:00 97.6 F 72 18 125/61 11/01/20 02:00 18 11/01/20 00:00 97.4 F L 73 18 141/76 10/31/20 23:35 72 16 119/73 10/31/20 22:00 68 16 111/60 10/31/20 20:40 85 16 145/90 10/31/20 18:23 98.6 F 73 18 136/82 Pulse Ox 11/01/20 08:00 94 L 11/01/20 04:00 97 11/01/20 02:00 11/01/20 00:00 93 L 10/31/20 23:35 98 10/31/20 22:00 98 10/31/20 20:40 94 L 10/31/20 18:23 98 Intake and Output 10/31/20 11/01/20 11/01/20 22:59 06:59 14:59 Intake Total 10 300 Output Total 400 Balance -390 300 Intake: IV 10 Invasive Line 1 10 Oral 300 Output: Urine 400 Other: Voiding Method Toilet # Voids 1 Weight 77.111 kg 75.9 kg Head normocephalic Neck supple Lungs clear to auscultation bilaterally no wheezing or crackles Heart regular rate and rhythm S1-S2, no rub or gallop Abdomen is soft nontender nondistended positive bowel sounds no hepatosplenomegaly Extremities no edema Neuro alert and orientated to 3. Speech is clear memory intact 5/5 strength throughout all extremities Results CBC & Chem 7: 10/31/20 18:46 10/31/20 18:46 Labs: Abnormal Lab Results - Last 24 Hours (Table) 10/31/20 Range/Units 18:46 Sodium 136 L (137-145) mmol/L Potassium 3.3 L (3.5-5.1) mmol/L Thrombosis Risk Factor Assmnt - Choose All That Apply Each Risk Factor Represents 3 Points: Age 75 years or older Thrombosis Risk Factor Assessment Total Risk Factor Score: 3 Thrombosis Risk Factor Assessment Level: Moderate Risk Assessment and Plan Assessment: 1. Acute visual disturbance possible CVA. Head CT negative. CTA negative. Neurology services consulted. MRI of the brain ordered. 2-D echo ordered 2. 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 History of GERD 4. History of hyperlipidemia. Maintained on statin 5. History of essential hypertension Neurology services following Patient started on Brilinta per neurology MRI of the brain ordered 2-D echo ordered Repeat labs ordered
[2020-11-01 10:32] LABS: Basophils # (A) 0.1 k/uL (0-0.2); Basophils % (A) 1 %; Eosinophils # (A) 0.3 k/uL (0-0.7); Eosinophils % (A) 3 %; HGB 14.5 gm/dL (11.4-16.0); Lymphocytes # (A) 2.1 k/uL (1.0-4.8); Lymphocytes % (A) 28 %; MCH 30.1 pg (25.0-35.0); MCHC 34.5 g/dL (31.0-37.0); MCV 87.2 fL (80.0-100.0); Mean Platelet Volume 7.2; Monocytes # (A) 0.4 k/uL (0-1.0); Monocytes % (A) 5 %; Neutrophils # (A) 4.8 k/uL (1.3-7.7); Neutrophils % (A) 62 %; Platelet Count 242 k/uL (150-450); RBC 4.81 m/uL (3.80-5.40); RDW 12.3 % (11.5-15.5); WBC 7.7 k/uL (3.8-10.6)
[2020-11-01 10:44] LABS: Albumin 3.9 g/dL (3.5-5.0); Calcium 9.3 mg/dL (8.4-10.2); Potassium 3.7 mmol/L (3.5-5.1); Total Bilirubin 0.7 mg/dL (0.2-1.3); Total Protein 6.4 g/dL (6.3-8.2)
--- NOTE | 2020-11-01 11:13 | P.CNNES ---
History of Present Illness Consult date: 11/01/20 Requesting physician: Mannie Bowers Reason for Consult: visual disturbance History of Present Illness: This is an 80-year-old woman with medical history of ischemic stroke on 05/2020 (right occipital ), hypertension, dyslipidemia, chronic tinnitus resented to the emergency department on 11/01/2019 for visual disturbance. He stated that around 4:40 PM on 9 10/31/2020 she noticed that while she was in the kitchen pre paring dinner when she looks at the counter it appeared that was at a 45 degree angle on both eyes and whatever object she looked at it appeared at a 45 angle. The episode lasted 1 hour. There is no association of the diplopia, headaches, difficulty getting words out, weakness, numbness. She stated that during the episode she never covered any of the at her either eye to see if helped. She cu rrently feels she is back to baseline. She stated that she had the Holter monitor for 30 days and the was seen by cardiology team and that she was notified that the the Holter was normal. She had a stress test and is pending result. She follows up with a neurologist (Dr. Barcenas) and was told regarding her initial stroke and was told by him that there is no further work-up needed and to come back if anything new. Patient on medication as Crestor 10 mg daily, Plavix 75 mg daily. I personally saw the patient and 05/2020 for her right occipital ischemic stroke and the was recommended for the patient to be on dual antiplatelets and then that to be on Plavix after were 21 days and stop aspirin after that. She was recommended to continue the Crestor 10 mg because with a higher dose she had muscle cramping. During that time I recommended for the patient to follow-up with cardiology regarding the Holter monitor. Workup in our facility consisted of: CT of the head is reported as no definite acute process. I personally reviewed the CT of the head and I see the encephalomalacia over the right occipital. CTA of the head and neck was reported as no signal abnormality seen. EKG is reported as normal sinus rhythm. Minimal voltage criteria for left ventricular hypertrophy, may be normal variant. Possible anterior infarct, age undetermined. Abnormal EKG. On initial presentation the POC glucose was 90. Shen virus PCR not detected Review of Systems Review of system: The 12 point system was reviewed and apparent positive and negative per HPI. Past Medical History Past Medical History: GERD/Reflux, Hyperlipidemia, Hypertension, Osteoarthritis (OA) Additional Past Medical History / Comment(s): HX PRE-CA SKIN. 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 MIGRAINE HEADACHE. History of Any Multi-Drug Resistant Organisms: None Reported Date of last positivie culture/infection: 11/24/18 MDRO Source:: URINE Past Surgical History: Adenoidectomy, Tonsillectomy, Tubal Ligation Additional Past Surgical History / Comment(s): Multiple breast biposy, carpal tunnel surgery, hemmorhoid removal Past Anesthesia/Blood Transfusion Reactions: No Reported Reaction Past Psychological History: No Psychological Hx Reported Smoking Status: Never smoker Past Alcohol Use History: Occasional Past Drug Use History: None Reported - Past Family History Father Family Medical History: Pulmonary Embolus Sister(s) Family Medical History: Pulmonary Embolus Medications and Allergies Home Medications Medication Instructions Recorded Confirmed Type Pantoprazole Sodium [Protonix] 40 mg PO DAILY 03/21/15 10/31/20 History Amitriptyline HCl [Elavil] 50 mg PO HS 06/11/20 10/31/20 History Ascorbic Acid [Vitamin C] 1,000 mg PO DAILY 06/11/20 10/31/20 History Cholecalciferol [Vitamin D3 (25 1,000 unit PO HS 06/11/20 10/31/20 History Mcg = 1000 Iu)] Cranberry Fruit Extract [Cranberry] 500 mg PO HS 06/11/20 10/31/20 History L.acidoph,Paracasei, B.lactis 1 cap PO HS 06/11/20 10/31/20 History [Probiotic] Lysine [l-Lysine] 500 mg PO DAILY 06/11/20 10/31/20 History [place]-3 Fatty Acids/Fish Oil [Fish 1 cap PO DAILY 06/11/20 10/31/20 History Oil 1,000 mg Softgel] Rosuvastatin Calcium [Crestor] 10 mg PO HS 06/11/20 10/31/20 History Zinc 50 mg PO HS 06/11/20 10/31/20 History hydroCHLOROthiazide 25 mg PO DAILY 06/11/20 10/31/20 History Clopidogrel [Plavix] 75 mg PO DAILY tab 06/13/20 10/31/20 Rx Calcium Carbonate [Calcium] 600 mg PO DAILY 10/31/20 10/31/20 History Loratadine [Claritin] 10 mg PO DAILY PRN 10/31/20 10/31/20 History Meclizine HCl 25 mg PO QID PRN 10/31/20 10/31/20 History Allergies Allergy/AdvReac Type Severity Reaction Status Date / Time clindamycin [From Cleocin] Allergy Rash/Hives Verified 10/31/20 20:03 clindamycin HCl Allergy Itching Verified 10/31/20 20:03 [From Cleocin] clindamycin palmitate HCl Allergy Itching Verified 10/31/20 20:03 [From Cleocin] clindamycin phosphate Allergy Itching Verified 10/31/20 20:03 [From Cleocin] nitrofurantoin Allergy Itching Verified 10/31/20 20:03 [From Furadantin] Penicillins Allergy Rash/Hives Verified 10/31/20 20:03 Physical Examination - Vital Signs Vital Signs: Vital Signs Temp Pulse Pulse Pulse Resp BP BP 11/01/20 08:00 97.9 F 79 18 112/61 11/01/20 04:00 97.6 F 72 18 125/61 11/01/20 02:00 18 11/01/20 00:00 97.4 F L 73 18 141/76 10/31/20 23:35 72 16 119/73 10/31/20 22:00 68 16 111/60 10/31/20 20:40 85 16 145/90 10/31/20 18:23 98.6 F 73 18 136/82 Pulse Ox 11/01/20 08:00 94 L 11/01/20 04:00 97 11/01/20 02:00 11/01/20 00:00 93 L 10/31/20 23:35 98 10/31/20 22:00 98 10/31/20 20:40 94 L 10/31/20 18:23 98 Intake and Output 10/31/20 11/01/20 11/01/20 22:59 06:59 14:59 Intake Total 10 300 Output Total 400 Balance -390 300 Intake: IV 10 Invasive Line 1 10 Oral 300 Output: Urine 400 Other: Voiding Method Toilet # Voids 1 Weight 77.111 kg 75.9 kg GENERAL: The patient is lying in bed and is not in acute distress. CHEST: The heart rate is regular rate rhythm. No murmurs to auscultation. No carotid bruit bilaterally. LUNG: Clear to auscultation bilaterally no wheezing noted throughout. Not labored breathing. ABDOMEN/GI: Bowel sounds present in all 4 quadrants. No tenderness to palpation throughout. NEUROLOGICAL: Higher mental function: The patient is awake, alert, oriented to self, place and time. Patient is following commands. No aphasia and no neglect. Cranial nerves: The pupils are round, equal and reactive to light and accommodation. Visual arnett are left upper quandrant hemianopsiaull to confrontation (old). Extraocular movement is intact no nystagmus is noted. Facial sensation is normal to touch throughout. The facial strength is normal throughout. Hearing is normal bilaterally to hand rub. Tongue is midline and moved [id number] without any difficulty. No dysarthria is noted. Shoulder shrug is normal bilaterally. Motor: Gait is deferred. The strength is 5 over 5 throughout. Normal tone and bulk. Cerebellum: Normal finger to nose bilaterally. Sensation: Sensation is normal to touch throughout. Reflexes (right/left): 2+ throughout. Plantars are downgoing bilaterally. Results Coagulation study is reviewed and is normal. - Laboratory Findings CBC and BMP: 11/01/20 09:24 11/01/20 09:24 Abnormal Lab Findings: Abnormal Labs 10/31/20 18:46 Sodium 136 L Potassium 3.3 L Assessment and Plan Assessment: Transient visual disturbance (seeing this as if they are at 45 degree angle out of both eyes lasting 1 hour) likely due to transient ischemic attack Old right occipital ischemic stroke (05/2020) Hypertension Dyslipidemia Chronic tinnitus Plan: * CT of the head is reported as no definite acute process. I personally reviewed the CT of the head and I see the encephalomalacia over the right occipital. * CTA of the head and neck was reported as no signal abnormality seen. * The ED the patient was given aspirin 324 once there was started on Plavix 75 mg daily. I'll stop the Plavix and start the per patient on Brilinta 90mg 1 tab bid with loading Brilnta once. I also started the patient on aspirin 81 mg daily. The patient to be on ASA 81mg daily and Brilinta 90mg 1 tab bid for 21 days and after that to be only on Brilinta 90mg 1 tab bid. * Currently the patient is on Lipitor 20 mg daily at bedtime (she cannot tolerate higher dose of lipitor). * I ordered MRI of the brain to rule out any acute/subacute ischemic stroke. * I consulted PT and OT * Ordered every 4 hours neuro checks and that continuous cardiac monitoring. * 2-D echo was ordered and is pending. Ordered with bubble study. * I consulted cardiology for a AXEL. Recommend loop recorder. * I ordered the lipid panel, TSH and hemoglobin A1c part of the stroke workup. * I ordered hypercoagulable work-up: ELIE, anti-double strand DNA, anti-thrombin 3 activity in antigen, factor V Leiden, protein C and S antigen antibody, homocystine, von Willebrand factor, factor VII/VIII,MTHFR. * Placed the patient on continuous cardiac monitoring We'll defer the rest of the medical management to the primary team. The plan is discussed with the patient and her nurse. Thank you for the consultation Sudarshan Castillo MD Neuro-Hospitalist Time with Patient: Greater than 30
--- NOTE | 2020-11-01 11:33 | ECHOF ---
Referral Reason:CVA MEASUREMENTS -------- HEIGHT: 167.6 cm WEIGHT: 75.8 kg BP: RVIDd: 2.7 cm (< 3.3) IVSd: 1.1 cm (0.6 - 1.1) LVIDd: 3.0 cm (3.9 - 5.3) LVPWd: 1.4 cm (0.6 - 1.1) IVSs: 1.9 cm LVIDs: 1.4 cm LVPWs: 1.6 cm Ao Diam: 3.2 cm (2.0 - 3.7) AV Cusp: 2.2 cm (1.5 - 2.6) LA Diam: 2.4 cm (2.7 - 3.8) MV EXCURSION: 14.230 mm (> 18.000) MV EF SLOPE: 21 mm/s (70 - 150) EPSS: 0.4 cm MV E Teto: 0.43 m/s MV DecT: 207 ms MV A Teto: 0.70 m/s MV E/A Ratio: 0.62 RAP: 5.00 mmHg RVSP: 16.42 mmHg FINDINGS -------- This was a technically difficult study with suboptimal views. The left ventricular size is normal. There is mild concentric left ventricular hypertrophy. Overa ll left ventricular systolic function is normal with, an EF between 55 - 60 %. The right ventricle is normal in size. The left atrial size is normal. The right atrial size is normal. Lumason used Unable to perform bubble study due to poor image quality. The aortic valve is trileaflet and appears structurally normal. The mitral valve is normal. There is trace mitral regurgitation. The tricuspid valve appears structurally normal. Trace tricuspid regurgitation present. Right lucita tricular systolic pressure is normal at < 35 mmHg. There is no pulmonic regurgitation present. The aortic root size is normal. IVC Not well visulized. There is no pericardial effusion. CONCLUSIONS -------- 1. The left ventricular size is normal. 2. There is mild concentric left ventricular hypertrophy. 3. Overall left ventricular systolic function is normal with, an EF between 55 - 60 %. 4. Unable to perform bubble study due to poor image quality. 5. There is trace mitral regurgitation. 6. Trace tricuspid regurgitation present. CREDIT REPORTER: Flavia Multani [facility]
--- NOTE | 2020-11-01 11:59 | P.CRDCN ---
History of Present Illness History of present illness: HISTORY OF PRESENTING ILLNESS This is a pleasant 80-year-old female past medical history significant for ischemic stroke in 05/2020, hypertension, dyslipidemia. She follows in the office with Dr. Burnette. We have been asked to see in consultation for CVA, possible AXEL. On 10/31 patient presented to the hospital, at 4:30pm on 10/31, patien states she was making dinner and felt like the table started turning to a 45 degree angle on both eyes. Whatever object she looked at it appears to be at a 45 degree angle. She states this lasted for about an hour. She denies chest pain, shortness of breath, palpitations. She denies double vision, headaches, weakness, numbness. She denies history of diabetes. Current home cardiac medications include hydrochlorothiazide 25mg daily, Crestor 10mg nightly, Plavix 75mg daily. After her stroke in 05/2020, she wore an event monitor from 06/17-07/16/2020 the results for this were normal. She recently had a Lexiscan stress test on 10/15/20 which was negative for normal myocardial perfusion function. Only cardiac catheterization performed was in 2007 revealed normal coronary arteries. Patient is seen and examined at bedside. She currently does not have any more vision abnormalities symptoms. She is alert and oriented x 3. No complaints at this time. She is currently being maintained on aspirin 81 mg daily, atorvastatin 20 mg nightly, Hydrocort thiazide 25 mg daily, Patient given Brilinta 180mg once, and mintained on 90 mg twice a day. Laboratory data reviewed, CBC is unremarkable, Sodium 137, K 3.7, serum creatinine 0.85, BUN 16, covid-19 negative. Vital signs BP 112/62, heart rate 79, afebrile, maintaining oxygen saturation is 97% on room air. DIAGNOSTICS EKG reveals sinus mechanism HR 74, no acute ST-T wave abnormalities. Telemetry tracings indicate sinus mechanism HR 60-70s. Chest xray No acute cardiopulmonary process. Event monitor-06/17-07/16/2020 the results for this were normal. Lexiscan stress test on 10/15/20 which was negative for normal myocardial perfusion function. CT Brain- previously seen occipital lobe hypodensity consistent with prior infarct, no acute process. CT angio head and neck- no significant abnormality seen. Most recent echocardiogram 05/2020- EF 60-65% no wall motion abnormalities. REVIEW OF SYSTEMS At the time of my exam: CONSTITUTIONAL: Denies fever or chills. CARDIOVASCULAR: Denies chest pain, shortness of breath, orthopnea, PND or palpitations. RESPIRATORY: Denies cough. GASTROINTESTINAL: Denies abdominal pain, diarrhea, constipation, nausea or vomiting. MUSCULOSKELETAL: Denies myalgias. NEUROLOGIC: +vision changes Denies numbness, tingling, headacbe or weakness. ENDOCRINE: Denies fatigue, weight change, polydipsia or polyurina. GENITOURINARY: Denies burning, hematuria or urgency with micturation. HEMATOLOGIC: Denies history of anemia or bleeding. PHYSICAL EXAMINATION CONSTITUTIONAL: No apparent distress. HEENT: Head is normocephalic. Pupils are equal, round. Sclerae anicteric. Mucous membranes of the mouth are moist. No JVD. No carotid bruit. CHEST EXAMINATION: Lungs are clear to auscultation. No chest wall tenderness is noted on palpation or with deep breathing. HEART EXAMINATION: Regular rate and rhythm. S1, S2 heard. No murmurs, gallops or rub. ABDOMEN: Soft, nontender. Positive bowel sounds. EXTREMITIES: 2+ peripheral pulses, no lower extremity edema and no calf tenderness. NEUROLOGIC EXAMINATION: Patient is awake, alert and oriented x3. ASSESSMENT History CVA right occipatal lobe (05/2020) Hypertension Hyperlipidemia PLAN 2D echo has been ordered- will follow up on results Continue cardiac monitoring Neurology is following patient Will plan for AXEL, keep patient NPO after midnight. I have discussed the risks, benefits and alternative therapies for the above- mentioned procedure and for both sedation/analgesia as well as necessary blood p roduct administration, if indicated, as they pertain to this patient. The patient has indicated understanding and acceptance of the risks and procedures discussed. Questions have been answered appropriately and he is agreeable to move forward with the above-stated procedure. Nurse Practitioner note has been reviewed, I agree with a documented findings and plan of care. Patient was seen and examined. Past Medical History Past Medical History: GERD/Reflux, Hyperlipidemia, Hypertension, Osteoarthritis (OA) Additional Past Medical History / Comment(s): HX PRE-CA SKIN. 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 MIGRAINE HEADACHE. History of Any Multi-Drug Resistant Organisms: None Reported Date of last positivie culture/infection: 11/24/18 MDRO Source:: URINE Past Surgical History: Adenoidectomy, Tonsillectomy, Tubal Ligation Additional Past Surgical History / Comment(s): Multiple breast biposy, carpal t unnel surgery, hemmorhoid removal Past Anesthesia/Blood Transfusion Reactions: No Reported Reaction Past Psychological History: No Psychological Hx Reported Smoking Status: Never smoker Past Alcohol Use History: Occasional Past Drug Use History: None Reported - Past Family History Father Family Medical History: Pulmonary Embolus Sister(s) Family Medical History: Pulmonary Embolus Medications and Allergies Home Medications Medication Instructions Recorded Confirmed Type Pantoprazole Sodium [Protonix] 40 mg PO DAILY 03/21/15 10/31/20 History Amitriptyline HCl [Elavil] 50 mg PO HS 06/11/20 10/31/20 History Ascorbic Acid [Vitamin C] 1,000 mg PO DAILY 06/11/20 10/31/20 History Cholecalciferol [Vitamin D3 (25 1,000 unit PO HS 06/11/20 10/31/20 History Mcg = 1000 Iu)] Cranberry Fruit Extract [Cranberry] 500 mg PO HS 06/11/20 10/31/20 History L.acidoph,Paracasei, B.lactis 1 cap PO HS 06/11/20 10/31/20 History [Probiotic] Lysine [l-Lysine] 500 mg PO DAILY 06/11/20 10/31/20 History [place]-3 Fatty Acids/Fish Oil [Fish 1 cap PO DAILY 06/11/20 10/31/20 History Oil 1,000 mg Softgel] Rosuvastatin Calcium [Crestor] 10 mg PO HS 06/11/20 10/31/20 History Zinc 50 mg PO HS 06/11/20 10/31/20 History hydroCHLOROthiazide 25 mg PO DAILY 06/11/20 10/31/20 History Clopidogrel [Plavix] 75 mg PO DAILY tab 06/13/20 10/31/20 Rx Calcium Carbonate [Calcium] 600 mg PO DAILY 10/31/20 10/31/20 History Loratadine [Claritin] 10 mg PO DAILY PRN 10/31/20 10/31/20 History Meclizine HCl 25 mg PO QID PRN 10/31/20 10/31/20 History Allergies Allergy/AdvReac Type Severity Reaction Status Date / Time clindamycin [From Cleocin] Allergy Rash/Hives Verified 10/31/20 20:03 clindamycin HCl Allergy Itching Verified 10/31/20 20:03 [From Cleocin] clindamycin palmitate HCl Allergy Itching Verified 10/31/20 20:03 [From Cleocin] clindamycin phosphate Allergy Itching Verified 10/31/20 20:03 [From Cleocin] nitrofurantoin Allergy Itching Verified 10/31/20 20:03 [From Furadantin] Penicillins Allergy Rash/Hives Verified 10/31/20 20:03 Physical Exam Vitals: Vital Signs Temp Pulse Pulse Pulse Resp BP BP 11/01/20 08:00 97.9 F 79 18 112/61 11/01/20 04:00 97.6 F 72 18 125/61 11/01/20 02:00 18 11/01/20 00:00 97.4 F L 73 18 141/76 10/31/20 23:35 72 16 119/73 10/31/20 22:00 68 16 111/60 10/31/20 20:40 85 16 145/90 10/31/20 18:23 98.6 F 73 18 136/82 Pulse Ox 11/01/20 08:00 94 L 11/01/20 04:00 97 11/01/20 02:00 11/01/20 00:00 93 L 10/31/20 23:35 98 10/31/20 22:00 98 10/31/20 20:40 94 L 10/31/20 18:23 98 Intake and Output 10/31/20 11/01/20 11/01/20 22:59 06:59 14:59 Intake Total 10 300 Output Total 400 Balance -390 300 Intake: IV 10 Invasive Line 1 10 Oral 300 Output: Urine 400 Other: Voiding Method Toilet # Voids 1 Weight 77.111 kg 75.9 kg Results 11/01/20 09:24 11/01/20 09:24 Cardiac Enzymes 11/01/20 Range/Units 09:24 AST 31 (14-36) U/L Coagulation 10/31/20 Range/Units 18:46 PT 10.9 (9.0-12.0) sec APTT 25.9 (22.0-30.0) sec CBC 10/31/20 11/01/20 Range/Units 18:46 09:24 WBC 9.4 7.7 (3.8-10.6) k/uL RBC 4.78 4.81 (3.80-5.40) m/uL Hgb 14.7 14.5 (11.4-16.0) gm/dL Hct 41.5 42.0 (34.0-46.0) % Plt Count 239 242 (150-450) k/uL Comprehensive Metabolic Panel 10/31/20 11/01/20 Range/Units 18:46 09:24 Sodium 136 L 137 (137-145) mmol/L Potassium 3.3 L 3.7 (3.5-5.1) mmol/L Chloride 102 102 (98-107) mmol/L Carbon Dioxide 28 25 (22-30) mmol/L BUN 14 16 (7-17) mg/dL Creatinine 0.87 0.85 (0.52-1.04) mg/dL Glucose 84 116 H (74-99) mg/dL Calcium 9.0 9.3 (8.4-10.2) mg/dL AST 31 (14-36) U/L ALT 22 (4-34) U/L Alkaline Phosphatase 56 (38-126) U/L Total Protein 6.4 (6.3-8.2) g/dL Albumin 3.9 (3.5-5.0) g/dL Current Medications Generic Name Dose Route Start Last Admin Trade Name Freq PRN Reason Stop Dose Admin Amitriptyline HCl 50 mg 11/01/20 01:31 11/01/20 01:57 Amitriptyline Hcl 50 Mg Tab PO 50 mg HS SUGEY Administration Ascorbic Acid 1,000 mg 11/01/20 09:00 11/01/20 08:27 Ascorbic Acid 500 Mg Tab PO 1,000 mg DAILY SUGEY Administration Aspirin 81 mg 11/01/20 10:15 Aspirin 81 Mg PO DAILY SUGEY Atorvastatin Calcium 20 mg 11/01/20 21:00 Atorvastatin 20 Mg Tab PO HS [facility] Calcium Carbonate/Glycine 500 mg 11/01/20 09:00 11/01/20 08:27 Calcium Carbonate 500 Mg Chewable PO 500 mg DAILY SUGEY Administration Cholecalciferol 25 mcg 11/01/20 21:00 Cholecalciferol 25 Mcg (1000 Iu) Tablet PO HS [facility] Hydrochlorothiazide 25 mg 11/01/20 09:00 11/01/20 08:27 Hydrochlorothiazide 25 Mg Tab PO Not Given DAILY SUGEY Sodium Chloride 1,000 mls @ 20 mls/hr 10/31/20 22:00 11/01/20 06:43 Saline 0.9% IV 20 mls/hr .Q24H SUGEY Administration Lactobacillus Acidoph/Bulgaricus 1 each 11/01/20 21:00 Lactobacillus Acidoph & Bulgar 1 Each Packet PO HS SUGEY Loratadine 10 mg 11/01/20 09:00 Loratadine 10 Mg Tab PO DAILY PRN Allergy Symptoms Meclizine HCl 25 mg 11/01/20 09:00 Meclizine 25 Mg Tab PO QID PRN Vertigo Melatonin 5 mg 11/01/20 01:45 11/01/20 01:57 Melatonin 5 Mg Tablet PO 5 mg HS PRN Administration Insomnia Naloxone HCl 0.2 mg 10/31/20 21:54 Naloxone 0.4 Mg/Ml 1 Ml Vial IV Q2M PRN Opioid Reversal Pantoprazole Sodium 40 mg 11/01/20 09:00 11/01/20 08:28 Pantoprazole 40 Mg Tablet PO 40 mg DAILY SUGEY Administration Ticagrelor 90 mg 11/01/20 21:00 Ticagrelor 90 Mg Tab PO BID SUGEY Zinc Sulfate 220 mg 11/01/20 21:00 Zinc Sulfate 220 Mg Cap PO HS SUGEY Intake and Output 10/31/20 11/01/20 11/01/20 22:59 06:59 14:59 Intake Total 10 300 Output Total 400 Balance -390 300 Intake: IV 10 Invasive Line 1 10 Oral 300 Output: Urine 400 Other: Voiding Method Toilet # Voids 1 Weight 77.111 kg 75.9 kg 11/01/20 09:24 11/01/20 09:24
[2020-11-01] MEDS: ASPIRIN 81 MG PO SCH (13:11)
--- NOTE | 2020-11-01 15:09 | MR ---
EXAMINATION TYPE: MR brain wo con DATE OF EXAM: 11/01/2020 COMPARISON: 08/07/2020 HISTORY: Acute visual disturbance CONTRAST: Performed utilizing 0 mL intravenous Gadavist gadolinium contrast. TECHNIQUE: Multiplanar, multiecho imaging on a 3.0 Negra magnet is performed through the brain. Stud y is performed within 24 hours of arrival to the hospital. The craniovertebral junction is normal. The pituitary is normal. Diffusion-weighted imaging is performed. No abnormal hyperintensity is present to suggest an acute i ntracranial infarct or acute ischemic change. White matter changes appear to be present within the brainstem. Posterior right occipital lobe change s are present which can be post infarct or posttraumatic. Periventricular white matter hyperintensiti es are present at are nonspecific. Microvascular ischemic changes likely within the differential. Ventricles and sulci are appropriate for the patient age. IMPRESSIONS: 1. Posttraumatic or post infarct changes inferior medial right occipital lobe. 2. Periventricular white matter ischemic-type changes. 3. No significant interval change
[2020-11-01] MEDS: TICAGRELOR 90 MG TAB PO SCH (20:14)
[2020-11-01] MEDS ORDERED: ZINC SULFATE 220 MG CAP PO SCH (21:00)
[2020-11-01] MEDS ORDERED: NON FORMULARY DRUG (Cranberry Fruit Extract [Cranberry] 500 MG Tablet) PO SCH (21:00)
[2020-11-01] MEDS ORDERED: ATORVASTATIN 20 MG TAB PO SCH (21:00)
[2020-11-01] MEDS ORDERED: LACTOBACILLUS ACIDOPH & BULGAR 1 EACH PACKET PO SCH (21:00)
[2020-11-01] MEDS ORDERED: CHOLECALCIFEROL 25 MCG (1000 IU) TABLET PO SCH (21:00)
[2020-11-02 00:36] LABS: Anti-DNA, DS unit <1.0 IU/mL; DNA Double-Stranded NEGATIVE (NEGATIVE)
[2020-11-02 08:28] VITALS: TEMP 97.7
[2020-11-02] MEDS ORDERED: fentaNYL (PF) 50 MCG/ML 2 ML AMP ONE (09:36)
[2020-11-02] MEDS ORDERED: SODIUM CHLORIDE 0.9% 250 ML IV ONE (09:45)
[2020-11-02] MEDS ORDERED: BENZOCAINE SPRAY 1 CAN TOPICAL ONE ×2 (10:04→10:10)
[2020-11-02] MEDS: MIDAZOLAM 2 MG/2 ML VIAL IV ONE ×2 (10:10→10:14)
[2020-11-02] MEDS ORDERED: fentaNYL (PF) 50 MCG/ML 2 ML AMP IV ONE (10:12)
[2020-11-02 10:44] VITALS: RESP 12
[2020-11-02 10:46] VITALS: BP 110/56; PULSE 65
--- NOTE | 2020-11-02 11:09 | ECHOT ---
TRANSESOPHAGEAL ECHOCARDIOGRAM PROCEDURE PERFORMED: Transesophageal echocardiogram. INDICATION: Rule out cardiac etiology for TIA. PROCEDURE: After explaining the procedure to the patient. Its risks and the complications, blood pressure, heart rate, O2 saturation was monitored. The throat was sprayed with Cetacaine. She received 2 mg intravenous Versed, 50 mcg intravenous fentanyl. The probe was introduced into the esophagus without difficulty. Images were obtained. Following that, the probe was removed. There was no immediate complication. FINDINGS: Left atrial size is normal. Left atrial appendage is normal. The interatrial septum is highly mobile. The mitral valve and the aortic valve and tricuspid valve are normal. Left ventricular systolic function is normal. Descending thoracic aorta revealed mild atherosclerotic changes of the descending thoracic aorta. No pericardial effusion was noted. Contrast bubble study revealed a mild shunting of bubbles across the interatrial septum with Valsalva maneuver. Doppler pulse wave and color Doppler obtained revealed mild mitral and tricuspid regurgitation. There was a questionable PFO flow on the transesophageal echocardiogram, although not very well visualized. IMPRESSION: 1. Normal ventricular size and systolic function. 2. Normal appearance of the left atrial appendage. 3. Evidence of patent foramen ovale with gccif-rj-pdvn shunting with Valsalva maneuver. 4. Mild mitral and tricuspid regurgitation. 5. Mild atherosclerotic changes of the descending thoracic aorta. MMODL / IJN: [id number] /
--- NOTE | 2020-11-02 11:42 | P.DS ---
Providers Date of admission: 10/31/20 21:54 Expected date of discharge: 11/02/20 Attending physician: Jaime Archuleta Consults: 10/31/20 22:00 Consult Physician Routine Consulting Provider: Sudarshan Castillo Consult Reason/Comments: suspect CVA Do you want consulting provider notified?: Yes 11/01/20 10:47 Consult Physician Routine Consulting Provider: Clara Joel Consult Reason/Comments: AXEL. Hx of stroke with another TIA Do you want consulting provider notified?: Yes Primary care physician: Antonieta Santa Hospital Course: Diagnosis on discharge: 1. Acute visual disturbance related to CVA. Head CT negative. CTA negative. Neurology services consulted. MRI of the brain ordered. And revealed evidence of infarct in the inferior medial right occipital lobe. 2-D echo ordered, and did not reveal any acute abnormality AXEL was done and revealed evidence of patent foramen ovale with dohqo-eu-mpkq shunting with Valsalva maneuver. 2. 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 History of GERD 4. History of hyperlipidemia. Maintained on statin 5. History of essential hypertension Hospital course: This is an 80-year-old female patient of Dr. Santa who presented to ER with complaints of acute visual disturbance that started yesterday for 2020 around 4:30 will patient was preparing a salad. Patient reports no other neurological symptoms at that time. Patient reports she does have a past medical history of CVA May in which she has residual vision issues in her right eye. Additional medical history includes GERD, hyperlipidemia, hypertension, osteoarthritis, migraine headaches and carpal tunnel syndrome. Chest x-ray completed showing no acute process. Head CT completed showing no definitive acute process. CT of the neck performed showing no significant abnormality. EKG showing normal sinus rhythm. Neurology services have been consulted. 2-D echo has been ordered repeat labs ordered. At this time patient reports return of normal vision. No others neuro symptoms noted upon exam. Speech is clear memory intact. Patient denies any recent illness. Patient denies nausea vomiting or diarrhea. Patient denies chest pain or shortness breath. Patient denies any urinary burning or frequency. On 11/02/2020 patient was seen and examined on the telemetry floor she is alert and oriented 3 in no apparent distress she denies any symptoms at this time she stated that her vision is back to normal. Case was discussed over the phone with Dr. Joel store grocery merchandiser, patient underwent AXEL and had evidence of patent foramen ovale with glasx-xj-nrgn shunting with Valsalva maneuver, recommendation per cardiology is to discharge patient to home and follow-up with her store grocery merchandiser with possible procedure in the near future for closure of patent foramen ovale. Recommendation for blood thinner is to continue with Brilinta and aspirin at this point per cardiology. Patient will be discharged home today follow-up with cardiology and with primary care physician Dr. Santa within one week. Patient Condition at Discharge: Fair Plan - Discharge Summary Discharge Rx Participant: No New Discharge Prescriptions: New Aspirin 81 mg PO DAILY chew Ticagrelor [Brilinta] 90 mg PO BID tab Continue Pantoprazole Sodium [Protonix] 40 mg PO DAILY Cholecalciferol [Vitamin D3 (25 Mcg = 1000 Iu)] 1,000 unit PO HS hydroCHLOROthiazide 25 mg PO DAILY Zinc 50 mg PO HS [place]-3 Fatty Acids/Fish Oil [Fish Oil 1,000 mg Softgel] 1 cap PO DAILY Ascorbic Acid [Vitamin C] 1,000 mg PO DAILY Rosuvastatin Calcium [Crestor] 10 mg PO HS Cranberry Fruit Extract [Cranberry] 500 mg PO HS Amitriptyline HCl [Elavil] 50 mg PO HS Lysine [l-Lysine] 500 mg PO DAILY L.acidoph,Paracasei, B.lactis [Probiotic] 1 cap PO HS Loratadine [Claritin] 10 mg PO DAILY PRN PRN Reason: Allergy Symptoms Calcium Carbonate [Calcium] 600 mg PO DAILY Meclizine HCl 25 mg PO QID PRN PRN Reason: Vertigo Discontinued Clopidogrel [Plavix] 75 mg PO DAILY tab Discharge Medication List Pantoprazole Sodium [Protonix] 40 mg PO DAILY 03/21/15 [History] Amitriptyline HCl [Elavil] 50 mg PO HS 06/11/20 [History] Ascorbic Acid [Vitamin C] 1,000 mg PO DAILY 06/11/20 [History] Cholecalciferol [Vitamin D3 (25 Mcg = 1000 Iu)] 1,000 unit PO HS 06/11/20 [History] Cranberry Fruit Extract [Cranberry] 500 mg PO HS 06/11/20 [History] L.acidoph,Paracasei, B.lactis [Probiotic] 1 cap PO HS 06/11/20 [History] Lysine [l-Lysine] 500 mg PO DAILY 06/11/20 [History] [place]-3 Fatty Acids/Fish Oil [Fish Oil 1,000 mg Softgel] 1 cap PO DAILY 06/11/20 [History] Rosuvastatin Calcium [Crestor] 10 mg PO HS 06/11/20 [History] Zinc 50 mg PO HS 06/11/20 [History] hydroCHLOROthiazide 25 mg PO DAILY 06/11/20 [History] Calcium Carbonate [Calcium] 600 mg PO DAILY 10/31/20 [History] Loratadine [Claritin] 10 mg PO DAILY PRN 10/31/20 [History] Meclizine HCl 25 mg PO QID PRN 10/31/20 [History] Aspirin 81 mg PO DAILY chew 11/02/20 [Rx] Ticagrelor [Brilinta] 90 mg PO BID tab 11/02/20 [Rx] Follow up Appointment(s)/Referral(s): Antonieta Santa MD [Primary Care Provider] - 1-2 days
--- NOTE | 2020-11-02 11:50 | PN ---
PROGRESS NOTE Mrs. Blake is an 80-year-old female with prior history of cerebrovascular accident, who presented with distortion of her vision that resolved. She is doing well otherwise. She denies any chest pain. No dizziness. No palpitation. She denies any nausea. She continues to be on aspirin once a day, Brilinta 90 mg twice a day, Lipitor 20 mg daily, hydrochlorothiazide 25 mg daily. PHYSICAL EXAMINATION: Blood pressure 124/70 with a heart rate in the 80s. LUNGS: Clear. HEART: Regular rate and rhythm S1, S2. No S3. No rub. No gallop appreciated. ABDOMEN: Soft and nontender. EXTREMITIES: No edema. A AXEL was done today and revealed a highly mobile interatrial septum with a small PFO with horvi-qf-qhky shunting with Valsalva maneuver with bubble study. Otherwise, the left ventricular systolic function is normal and left atrial appendage is normal. IMPRESSION: 1. Possible transient ischemic attack with a history of stroke in the past. 2. History of hyperlipidemia. 3. History of hypertension. RECOMMENDATION: From the cardiac standpoint, will continue present therapy. Patient will need to be evaluated by Dr. Burnette regarding the need to undergo closure of her PFO. In the meantime, will continue on her present medical regimen. MMODL / IJN: [id number] /
[2020-11-02 12:36] LABS: Basophils # (A) 0.1 k/uL (0-0.2); Basophils % (A) 1 %; Eosinophils # (A) 0.3 k/uL (0-0.7); Eosinophils % (A) 3 %; HGB 14.6 gm/dL (11.4-16.0); Lymphocytes # (A) 1.7 k/uL (1.0-4.8); Lymphocytes % (A) 23 %; MCH 30.4 pg (25.0-35.0); MCHC 34.8 g/dL (31.0-37.0); MCV 87.3 fL (80.0-100.0); Mean Platelet Volume 7.3; Monocytes # (A) 0.4 k/uL (0-1.0); Monocytes % (A) 5 %; Neutrophils # (A) 5.1 k/uL (1.3-7.7); Neutrophils % (A) 67 %; Platelet Count 245 k/uL (150-450); RBC 4.81 m/uL (3.80-5.40); RDW 12.4 % (11.5-15.5); WBC 7.6 k/uL (3.8-10.6)
[2020-11-02 12:48] LABS: Albumin 3.8 g/dL (3.5-5.0); Calcium 9.3 mg/dL (8.4-10.2); Potassium 3.9 mmol/L (3.5-5.1); Total Bilirubin 0.7 mg/dL (0.2-1.3); Total Protein 6.4 g/dL (6.3-8.2)
[2020-11-02] MEDS: ASPIRIN 81 MG PO SCH (14:00)
[2020-11-02] MEDS: CALCIUM CARBONATE 500 MG CHEWABLE PO SCH (14:00)
[2020-11-02] MEDS: PANTOPRAZOLE 40 MG TABLET PO SCH (14:00)
[2020-11-02] MEDS: hydroCHLOROthiazide 25 MG TAB PO SCH (14:00)
[2020-11-02] MEDS: ASCORBIC ACID 500 MG TAB PO SCH (14:00)
[2020-11-02] MEDS: TICAGRELOR 90 MG TAB PO SCH (14:01)
--- NOTE | 2020-11-02 14:29 | P.PN ---
Subjective Progress Note Date: 11/02/20 The patient was seen at bedside and she said she feel fairly well and had brief episode of looking at thing and looked at 25 degree angle. Otherwise has not happened again. She said it was very brief. Denies weakness, numbness, word finding difficulty. Objective - Vital Signs Vital signs: Vital Signs Temp 97.7 F 11/02/20 08:00 Pulse 65 11/02/20 10:44 Resp 12 11/02/20 10:44 BP 110/56 11/02/20 10:44 Pulse Ox 95 11/02/20 10:44 Intake & Output 11/01/20 11/02/20 11/02/20 18:59 06:59 18:59 Intake Total 1160 20 600 Balance 1160 20 600 Weight 75.8 kg Intake: IV 20 20 50 Invasive Line 1 20 20 Oral 1140 550 Other: Voiding Method Toilet # Voids 3 1 # Bowel Movements 1 - Exam GENERAL: The patient is lying in bed and is not in acute distress. NEUROLOGICAL: Higher mental function: The patient is awake, alert, oriented to self, place and time. Patient is following commands. No aphasia and no neglect. Cranial nerves: The pupils are round, equal and reactive to light and accommodation. Visual arnett are left upper quandrant hemianopsiaull to confrontation (old). Extraocular movement is intact no nystagmus is noted. Facial sensation is normal to touch throughout. The facial strength is normal throughout. Hearing is normal bilaterally to hand rub. Tongue is midline and moved powa-qj-hwty without any difficulty. No dysarthria is noted. Shoulder shrug is normal bilaterally. Motor: Gait is deferred. The strength is 5 over 5 throughout. Normal tone and bulk. Cerebellum: Normal finger to nose bilaterally. Sensation: Sensation is normal to touch throughout. Reflexes (right/left): 2+ throughout. Plantars are downgoing bilaterally. - Labs CBC & Chem 7: 11/02/20 12:02 11/02/20 12:02 Assessment and Plan Assessment: Transient visual disturbance (seeing this as if they are at 45 degree angle out of both eyes lasting 1 hour) likely due to transient ischemic attack. Cannot exclude seizure due to irritation of old right occipital but seems atypical. 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 I personally reviewed the CT of the head and I see the encephalomalacia over the right occipital. * CTA of the head and neck was reported as no signal abnormality seen. * Continue ASA 81mg and Brilinta 90mg 1 tab bid for 21 days and after that to be only on Brilinta 90mg 1 tab bid. * Currently the patient is on Lipitor 20 mg daily at bedtime (she cannot tolerate higher dose of lipitor). * MRI of the brain: As reported as posttraumatic or post infarct changes inf erior medial right occipital lobe. The ventricular white matter ischemic changes. No significant interval change. The patient did not have a post traumatic rather then she had the an old the ischemic stroke. * I consulted PT and OT * Continue every 4 hours neuro checks and that continuous cardiac monitoring. * Transesophageal echocardiogram is reported as normal ventricular size and systolic function. Normal appearance of the left atrial appendage. Evidence of patent the form in all valve with ndpbi-[id number]-[id number] shunting with Valsalva maneuver. Mild mitral and tricuspid regurgitation. Mild others carotid changes of the descending thoracic aorta. * I spoke with the patient regarding the transesophageal echocardiogram report finding small PFO and her daughter was at bedside and the patient stated that down the line if she has further episodes she would like it closed. I notified her that the episodes also could be due to the seizure especially that she had an old area ischemic stroke that can cause cortical irritability. She'll hold off on any antiepileptic drug for now and as an outpatient if she has had these episodes she'll follow-up with her neurologist and notified her to have an EEG. * Recommend loop recorder. * The panel: Triglyceride 167, cholesterol 152, LDL 79, HDL is 40. The LDL targets and stroke is less than 70. * TSH is 2.58 which is considered normal. * Hypercoagulable work-up: ELIE and anti-double strand DNA are negative. Pending anti-thrombin 3 activity in antigen, factor V Leiden, protein C and S antigen antibody, homocystine, von Willebrand factor, factor VII/VIII,MTHFR. * Placed the patient on continuous cardiac monitoring We'll defer the rest of the medical management to the primary team. Patient is to follow-up with her neurologist as outpatient within 1-2 weeks. She is clear from neurology perspective. The plan is discussed with the patient, patient's daughter (who is at bedside) and her nurse. Sudarshan Castillo MD Neuro-Hospitalist Time with Patient: Less than 30
[2020-11-04 02:12] LABS: Von Willebrand Factor Antigen 115 % (52-214)
[2020-11-04 12:50] LABS: Protein S Antigen 95 % (50 - 140)
[2020-11-05 10:38] LABS: Protein C (Activity) 123 % (71-138)
[2020-11-05 10:42] LABS: Protein C Antigen 103 % (72-160)
== END 2020-11-02 14:43 | disposition home or self-care (01) ==
LOC: EC 17:51 → 3SCARD 21:54
PROVIDERS: ADMIT Internal Medicine; ATTEND Internal Medicine
DX: H53.9 Unspecified visual disturbance (principal); I63.9 Cerebral infarction, unspecified; Q21.1 Atrial septal defect; Z86.73 Personal history of transient ischemic attack (TIA), and cerebral infarction without residual deficits; K21.9 Gastro-esophageal reflux disease without esophagitis; E78.5 Hyperlipidemia, unspecified; I10 Essential (primary) hypertension; G43.909 Migraine, unspecified, not intractable, without status migrainosus; G56.00 Carpal tunnel syndrome, unspecified upper limb; M19.90 Unspecified osteoarthritis, unspecified site; R42 Dizziness and giddiness; R94.31 Abnormal electrocardiogram [ECG] [EKG]; T78.40XA Allergy, unspecified, initial encounter; Z79.02 Long term (current) use of antithrombotics/antiplatelets; H93.19 Tinnitus, unspecified ear; G93.89 Other specified disorders of brain; Z90.89 Acquired absence of other organs; Z85.828 Personal history of other malignant neoplasm of skin; Z79.899 Other long term (current) drug therapy; Z88.0 Allergy status to penicillin; Z88.1 Allergy status to other antibiotic agents; Z20.822 Contact with and (suspected) exposure to COVID-19; Z82.49 Family history of ischemic heart disease and other diseases of the circulatory system
CPT/HCPCS: 99285; 36415; 93005; 93312; 93320; 93325; 97161; 97165; 85303; 85306; 85302; 85305; 80061; 80053 ×2; 80048; 84443; 83735; 85025 ×3; 85610; 85730; 85240; 85246; 85230; 83090; 85300; 86038; 86225; 81241; 83036; 87635; 81291; 71045; 70496; 70450; 70498; 70551; G0378 ×3; C8929; J2250; J3010; Q9950; Q9967; 85301; 93306

== ENCOUNTER → 2020-12-04 | Outpatient (CLI) | payer MEDICARE ==
--- NOTE | 2020-12-04 10:11 | US ---
EXAMINATION TYPE: US abdomen limited DATE OF EXAM: 12/04/2020 COMPARISON: NONE CLINICAL HISTORY: E16.2 Hypoglycemia, unspecified. EXAM MEASUREMENTS: Liver Length: 14.8 cm Gallbladder Wall: 0.2 cm CBD: 0.5cm Right Kidney: 10. x 3.5 x 5.4 cm Pancreas: The pancreas is limited in evaluation due to obscuration by bowel gas. The visualized porti ons of the pancreas are unremarkable. Liver: limited visualization of left lobe due to overlying bowel gas, prominent IVC Gallbladder: wnl Evidence for sonographic De La Cruz's sign No CBD: wnl Right Kidney: Upper pole lateral renal cyst measuring 1.7 x 1.0 x 1.7cm. Prominent renal pelvis. No h ydronephrosis or shadowing renal calculi. IMPRESSION: 1. The pancreas is limited in evaluation due to overlying bowel gas. 2. Limited evaluation of the left lobe of the liver due to overlying bowel gas. 3. 1.7 cm upper pole lateral renal cyst. Prominent right renal pelvis 4. Prominent right renal pelvis. No definite evidence of hydronephrosis.
== END | disposition home or self-care (01) ==
LOC: RADUSWWP 08:19
PROVIDERS: ATTEND Family Medicine
DX: N28.1 Cyst of kidney, acquired (principal)
CPT/HCPCS: 76705

== ENCOUNTER → 2021-07-30 | Outpatient (CLI) | payer MEDICARE ==
--- NOTE | 2021-08-04 11:08 | MM ---
Reason for exam: screening (asymptomatic). Last mammogram was performed 1 year and 2 months ago. History: Patient is postmenopausal and history of other cancer. 2 benign excisional biopsies of the left breast. Benign excisional biopsy of the right breast. Took estrogen for 10 years beginning at age 18. Physical Findings: A clinical breast exam by your physician is recommended on an annual basis and results should be correlated with mammographic findings. MG 3D Screening Mammo W/Cad Bilateral CC and MLO view(s) were taken. Prior study comparison: May 24, 2020, bilateral MG 3d screening mammo w/cad. March 03, 2019, left breast MG 3d work up w/cad LT. There are scattered fibroglandular densities. Benign oil cyst and secretory calcifications. Stable asymmetric density central outer left CC view. No significant changes when compared with prior studies. ASSESSMENT: Benign, BI-RAD 2 RECOMMENDATION: Routine screening mammogram of both breasts in 1 year.
== END | disposition home or self-care (01) ==
LOC: RADMAMWWP 12:30
PROVIDERS: ATTEND Family Medicine
DX: Z12.31 Encounter for screening mammogram for malignant neoplasm of breast (principal); Z78.0 Asymptomatic menopausal state
CPT/HCPCS: 77063; 77067

== ENCOUNTER 2022-03-28 06:46 | Emergency (ER) | payer MEDICARE ==
--- NOTE | 2022-03-28 07:17 | ED ---
General Adult HPI - General Chief complaint: Urogenital Stated complaint: Urogenital Time Seen by Provider: 03/28/22 07:00 Source: patient, RN notes reviewed Mode of arrival: ambulatory Limitations: no limitations - History of Present Illness Initial comments: Patient is a pleasant 81-year-old female presenting to the emergency department with concerns with urinary tract infection. Symptoms have been present for the past 3 days. Patient has dysuria and frequency. No nausea vomiting. No fever. Patient does have history of similar symptoms multiple times previously associated with urinary tract infection. Patient does have some mild suprapubic pressure. - Related Data Home Medications Medication Instructions Recorded Confirmed Pantoprazole Sodium [Protonix] 40 mg PO DAILY 03/21/15 10/31/20 Amitriptyline HCl [Elavil] 50 mg PO HS 06/11/20 10/31/20 Ascorbic Acid [Vitamin C] 1,000 mg PO DAILY 06/11/20 10/31/20 Cholecalciferol [Vitamin D3 (25 1,000 unit PO HS 06/11/20 10/31/20 Mcg = 1000 Iu)] Cranberry Fruit Extract [Cranberry] 500 mg PO HS 06/11/20 10/31/20 L.acidoph,Paracasei, B.lactis 1 cap PO HS 06/11/20 10/31/20 [Probiotic] Lysine [l-Lysine] 500 mg PO DAILY 06/11/20 10/31/20 [place]-3 Fatty Acids/Fish Oil [Fish 1 cap PO DAILY 06/11/20 10/31/20 Oil 1,000 mg Softgel] Rosuvastatin Calcium [Crestor] 10 mg PO HS 06/11/20 10/31/20 Zinc 50 mg PO HS 06/11/20 10/31/20 hydroCHLOROthiazide 25 mg PO DAILY 06/11/20 10/31/20 Calcium Carbonate [Calcium] 600 mg PO DAILY 10/31/20 10/31/20 Loratadine [Claritin] 10 mg PO DAILY PRN 10/31/20 10/31/20 Meclizine HCl 25 mg PO QID PRN 10/31/20 10/31/20 Previous Rx's Medication Instructions Recorded Aspirin 81 mg PO DAILY chew 11/02/20 Ticagrelor [Brilinta] 90 mg PO BID tab 11/02/20 Phenazopyridine [Pyridium] 100 mg PO TID #5 tablet 03/28/22 Sulfamethox-Tmp 800-160Mg [Bactrim 1 tab PO Q12HR #18 tab 03/28/22 DS 800-160 mg] Allergies Allergy/AdvReac Type Severity Reaction Status Date / Time clindamycin [From Cleocin] Allergy Rash/Hives Verified 03/28/22 06:58 clindamycin HCl Allergy Itching Verified 03/28/22 06:58 [From Cleocin] clindamycin palmitate HCl Allergy Itching Verified 03/28/22 06:58 [From Cleocin] clindamycin phosphate Allergy Itching Verified 03/28/22 06:58 [From Cleocin] nitrofurantoin Allergy Itching Verified 03/28/22 06:58 [From Furadantin] Penicillins Allergy Rash/Hives Verified 03/28/22 06:58 Review of Systems ROS Statement: Those systems with pertinent positive or pertinent negative responses have been documented in the HPI. ROS Other: All systems not noted in ROS Statement are negative. Constitutional: Denies: fever Eyes: Denies: eye pain ENT: Denies: ear pain Respiratory: Denies: cough Cardiovascular: Denies: chest pain Endocrine: Denies: fatigue Gastrointestinal: Reports: as per HPI. Denies: vomiting Genitourinary: Reports: as per HPI, urgency, dysuria, frequency. Denies: hematuria Musculoskeletal: Denies: back pain Skin: Denies: rash Past Medical History Past Medical History: GERD/Reflux, Hyperlipidemia, Hypertension, Osteoarthritis (OA) Additional Past Medical History / Comment(s): HX PRE-CA SKIN. 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 MIGRAINE HEADACHE. History of Any Multi-Drug Resistant Organisms: None Reported Date of last positivie culture/infection: 11/24/18 MDRO Source:: URINE Past Surgical History: Adenoidectomy, Tonsillectomy, Tubal Ligation Additional Past Surgical History / Comment(s): Multiple breast biposy, carpal tunnel surgery, hemmorhoid removal Past Anesthesia/Blood Transfusion Reactions: No Reported Reaction Past Psychological History: No Psychological Hx Reported Smoking Status: Never smoker Past Alcohol Use History: Occasional Past Drug Use History: None Reported - Past Family History Father Family Medical History: Pulmonary Embolus Sister(s) Family Medical History: Pulmonary Embolus General Exam Limitations: no limitations General appearance: alert, in no apparent distress Head exam: Present: normocephalic Neck exam: Present: normal inspection Respiratory exam: Present: normal lung sounds bilaterally Cardiovascular Exam: Present: regular rate, normal rhythm GI/Abdominal exam: Present: soft. Absent: distended, tenderness, pulsatile mass Extremities exam: Present: normal inspection Neurological exam: Present: alert Psychiatric exam: Present: normal affect, normal mood Skin exam: Present: normal color Course Vital Signs 03/28/22 03/28/22 06:54 08:36 Temperature 98.4 F Pulse Rate 114 H 89 Respiratory 22 18 Rate Blood Pressure 130/85 105/60 O2 Sat by Pulse 95 94 L Oximetry Medical Decision Making - Medical Decision Making Patient reevaluated and updated. - Lab Data Lab Results 03/28/22 Range/Units 07:22 Urine Color Yellow Urine Appearance Turbid H (Clear) Urine pH 6.5 (5.0-8.0) Ur Specific [place] 1.018 (1.001-1.035) Urine Protein 3+ H (Negative) Urine Glucose (UA) Negative (Negative) Urine Ketones Negative (Negative) Urine Blood Large H (Negative) Urine Nitrite Positive H (Negative) Urine Bilirubin Negative (Negative) Urine Urobilinogen <2.0 (<2.0) mg/dL Ur Leukocyte Esterase Large H (Negative) Urine RBC >182 H (0-5) /hpf Urine WBC >182 H (0-5) /hpf Urine WBC Clumps Rare H (None) /hpf Urine Bacteria Many H (None) /hpf Disposition Clinical Impression: Urinary tract infection Disposition: HOME SELF-CARE Condition: Stable Instructions (If sedation given, give patient instructions): Urinary Tract Infection in Women (ED) Additional Instructions: Prescriptions have been sent to pharmacy. Please follow-up with primary care physician in the next day or 2 for recheck. Return for fever, vomiting, increased discomfort, worsening symptoms or any other concerns. Prescriptions: Sulfamethox-Tmp 800-160Mg [Bactrim DS 800-160 mg] 1 tab PO Q12HR #18 tab Phenazopyridine [Pyridium] 100 mg PO TID #5 tablet Is patient prescribed a controlled substance at d/c from ED?: No Referrals: Antonieta Santa MD [Primary Care Provider] - 1-2 days Time of Disposition: 08:38
[2022-03-28 07:54] LABS: Appearance,Urine Turbid (Clear); Bacteria,Urine Many /hpf; Bilirubin,Urine Negative (Negative); Blood,Urine Large (Negative); Color,Urine Yellow; Glucose,Urine (UA) Negative (Negative); Ketones,Urine Negative (Negative); Leukocyte Esterase,Urine Large (Negative); Nitrite,Urine Positive (Negative); PH, Urine 6.5 (5.0-8.0); Protein,Urine 3+ (Negative); RBC,Urine >182 /hpf (0-5); Specific Gravity,Urine 1.018 (1.001-1.035); Urobilinogen,Urine <2.0 mg/dL (<2.0); WBC,Urine >182 /hpf (0-5)
[2022-03-28 08:37] VITALS: RESP 18
[2022-03-28] MEDS ORDERED: SULFAMETH-TMP DS STARTER PACK 2 TAB BTL PO STA (08:37)
[2022-03-28] MEDS ORDERED: PHENAZOPYRIDINE 200 MG TAB PO STA (08:37)
[2022-03-28 09:19] VITALS: BP 108/67; PULSE 91; TEMP 98.1
== END 2022-03-28 09:19 | disposition home or self-care (01) ==
LOC: EC 06:46
DX: N39.0 Urinary tract infection, site not specified (principal); K21.9 Gastro-esophageal reflux disease without esophagitis; I10 Essential (primary) hypertension; E78.5 Hyperlipidemia, unspecified; M19.90 Unspecified osteoarthritis, unspecified site; Z88.1 Allergy status to other antibiotic agents; Z88.0 Allergy status to penicillin
CPT/HCPCS: 81001; 87077; 87086; 87186; 99283; 99284

== ENCOUNTER → 2022-07-31 | Outpatient (CLI) | payer MEDICARE ==
--- NOTE | 2022-08-03 08:26 | MM ---
Reason for Exam: Screening (asymptomatic). Last screening mammogram was performed 12 month(s) ago. Patient History: Menarche at age 12. First Full-Term at age 22. Postmenopausal. Other cancer. Estrogen for 10 years from age 18 until age 58. Benign Excisional Biopsy on the right side. Benign Excisional Biopsy on the left side. Benign Excisional Biopsy on the left side. Risk Values: [place] 5 year model risk: 2.1%. NCI Lifetime model risk: 2.8%. Prior Study Comparison: 03/03/2019 Left Diagnostic Mammogram, [facility]. 05/24/2020 Bilateral Screening Mammogram, [facility]. 07/30/2021 Bilateral Screening Mammogram, [facility]. Tissue Density: There are scattered fibroglandular densities. Findings: Analyzed By CAD. Pattern appears symmetrical and stable. Benign scattered calcifications and vascular calcification is present. No suspicious groups of microcalcifications, spiculated or lobular masses, architectural distortion or other secondary signs of malignancy are mammographically apparent. Overall Assessment: Benign, BI-RAD 2 Management: Screening Mammogram of both breasts in 1 year. A negative mammogram report should not preclude additional follow up of suspicious palpable abnormalities. Patient should continue monthly self breast exam. A clinical breast exam by your physician is recommended on an annual basis and results should be correlated with mammographic findings. Electronically signed and approved by: Shai Nicole D.O. Radiologis
== END | disposition home or self-care (01) ==
LOC: RADMAMWWP 09:34
PROVIDERS: ATTEND Family Medicine
DX: Z12.31 Encounter for screening mammogram for malignant neoplasm of breast (principal); Z78.0 Asymptomatic menopausal state
CPT/HCPCS: 77063; 77067

== ENCOUNTER → 2022-10-19 | Outpatient (CLI) | payer MEDICARE ==
--- NOTE | 2022-10-19 15:10 | XR ---
EXAMINATION TYPE: XR chest 2V DATE OF EXAM: 10/19/2022 COMPARISON: 10/31/2020 HISTORY: 82-year-old female respiratory crackles, R09.89. TECHNIQUE: Frontal and lateral views FINDINGS: Heart upper limits of normal in size. Mild interstitial density in the lower lungs. No consolidation or pleural effusion. Similar elongation/tortuosity of the thoracic aorta. Moderate degenerative disc disease midthoracic spine. IMPRESSION: There may be some underlying fine interstitial density that could represent some mild fibrosis. CT if further detailed parenchymal assessment is desired.
== END | disposition home or self-care (01) ==
LOC: RADXRMAIN 11:14
PROVIDERS: ATTEND Internal Medicine Rheumatology
DX: R09.89 Other specified symptoms and signs involving the circulatory and respiratory systems (principal)
CPT/HCPCS: 71046

== ENCOUNTER → 2022-12-30 | Outpatient (CLI) | payer MEDICARE ==
--- NOTE | 2022-12-30 12:07 | CT ---
EXAMINATION TYPE: CT chest wo con DATE OF EXAM: 12/30/2022 COMPARISON: X-ray 10/19/2022 HISTORY: SOB CT DLP: 360.2 mGycm. Automated Exposure Control for Dose Reduction was Utilized. TECHNIQUE: CT scan of the thorax is performed without IV contrast. FINDINGS: LUNGS: The lungs are grossly clear, there is no concerning parenchymal mass or nodule identified. T here is no pleural effusion or pneumothorax seen. The tracheobronchial tree is patent. There is intr alobular septal thickening compatible with chronic interstitial pulmonary fibrosis UIP type. 2 mm petar cified granuloma left lower lobe. 2 mm nodule posterior margin subpleural right lower lobe axial imag e 36 series 4. Subpleural 1 mm nodule left lower lobe axial image 36 series MEDIASTINUM: Lack of IV contrast is noted to limit evaluation for mediastinal and especially hilar ad enopathy. There are no definitive greater than 1 cm hilar or mediastinal lymph nodes. No cardiomega ly or pericardial effusion is seen. Small hiatal hernia. Calcification the tracheobronchial tree. Min imal calcification below the aortic valve. Minimal coronary artery calcification. Thoracic aorta kym ures 3.9 cm in greatest dimension with mild atherosclerotic changes OTHER: Hypertrophic and degenerative changes in the spine. Partially included in the field of view ar e 2 hypodense lesions. One involves the left kidney and the other involves the right kidney measuring 3 Hounsfield units on the left compatible simple cyst and simple cyst on the right measuring 10 Houn sfield units. IMPRESSION: 1. Compatible with pulmonary fibrosis UIP type 2. Calcified granuloma left lower lobe. Additional sub-5 mm pulmonary nodules have benign appearance with no acute intrathoracic process. 3. Mild aneurysmal dilation ascending aorta measuring 3.9 cm.
== END | disposition home or self-care (01) ==
LOC: RADCTMAIN 11:39
PROVIDERS: ATTEND Internal Medicine Sleep Medicine
DX: I71.21 Aneurysm of the ascending aorta, without rupture (principal); J84.10 Pulmonary fibrosis, unspecified; R91.8 Other nonspecific abnormal finding of lung field
CPT/HCPCS: 71250

== ENCOUNTER → 2023-02-23 | Outpatient (CLI) | payer MEDICARE | LOC: CPPFTMAIN 13:56 | PROVIDERS: ATTEND Internal Medicine Sleep Medicine | DX: R06.02 Shortness of breath (principal); J84.10 Pulmonary fibrosis, unspecified; Z88.0 Allergy status to penicillin; Z88.8 Allergy status to other drugs, medicaments and biological substances | CPT/HCPCS: 94060; 94726; 94729 ==

== ENCOUNTER → 2023-08-02 | Outpatient (CLI) | payer MEDICARE ==
--- NOTE | 2023-08-03 12:09 | MM ---
Reason for Exam: Screening (asymptomatic). Last screening mammogram was performed 12 month(s) ago. Patient History: Menarche at age 12. First Full-Term at age 22. Postmenopausal. Patient has history of breast feeding. Other cancer. Estrogen for 10 years from age 18 until age 58. Benign Excisional Biopsy on the right side. Benign Excisional Biopsy on the left side. Benign Excisional Biopsy on the left side. Risk Values: Brittany 5 year model risk: 2.0%. NCI Lifetime model risk: 2.5%. Prior Study Comparison: 12/16/2016 Bilateral Screening Mammogram, [facility]. 01/13/2018 Bilateral Screening Mammogram, [facility]. 02/15/2019 Bilateral Screening Mammogram, [facility] 03/03/2019 Left Diagnostic Mammogram, [facility]. 05/24/2020 Bilateral Screening Mammogram, [facility] 07/30/2021 Bilateral Screening Mammogram, [facility]. 07/31/2022 Bilateral MG 3D screening mammo w/cad, [facility]. Tissue Density: The breast tissue is almost entirely fat. Findings: Analyzed By CAD. There is no suspicious group of microcalcifications or new suspicious mass. Benign-appearing calcifications bilaterally. Overall Assessment: Negative, BI-RAD 1 Management: Screening Mammogram of both breasts in [address] [facility] will attempt to contact patient to return for supplemental views and ultrasound if indicated. Patient should continue monthly self-breast exams. A clinical breast exam by your physician is recommended on an annual basis. This exam should not preclude additional follow-up of suspicious palpable abnormalities. Note on Brittany scores and lifetime risk: 1. A Brittany score greater than 3% is considered moderate risk. If this is the case, consider specialist referral to assess eligibility for a risk reducing agent. 2. If overall lifetime risk for the development of breast cancer is 20% or higher, the patient may qualify for future screening with alternating mammogram and breast MRI. Electronically signed and approved by: Gregorio Marsh DO
--- NOTE | 2023-08-04 18:23 | BD ---
EXAMINATION TYPE: Axial Bone Density DATE OF EXAM: 08/02/2023 CLINICAL HISTORY: 82 years old Female. ICD-10 CODE: Z78.0 MENOPAUSAL STATE Height: 64.5 in Weight: 166 lbs FRAX RISK QUESTIONS: Family History (Parent hip fracture): yes mother History of Fracture in Adulthood: lt wrist fx age 42 RISK FACTORS HISTORY OF: History of Wrist Fracture: lt wrist age 42 Family History of Osteoporosis: yes mother Active: moderate Postmenopausal woman: age 58 Take estrogen and/or progesterone medications: not now How lon years MEDICATIONS: Additional Medications: calcium, vit d, blood pressure meds, protonics, ringing in ears meds, cholest yuki meds, eye drops EXAM MEASUREMENTS: Bone mineral densitometry was performed using the [employer] System. Bone mineral density as measured about the Lumbar spine is: ----- L1-L4(G/cm2): 1.421 T Score Values are as follows: ----- L1: 3.0 ----- L2: 3.1 ----- L3: 1.2 ----- L4: 1.0 ----- L1-L4: 2.0 Z Score Values are as follows: ----- L1: 4.5 ----- L2: 4.7 ----- L3: 2.8 ----- L4: 2.6 ----- L1-L4: 3.6 Bone mineral density has: Increased 0.1% since study of: 01/03/2020 Bone mineral density about the R hip (g/cm2): 0.749 Bone mineral density about the L hip (g/cm2): 0.827 T Score values are as follows: -----R Neck: -2.0 -----L Neck: -1.9 -----R Total: -2.0 -----L Total: -1.4 Z Score values are as follows: -----R Neck: 0.1 -----L Neck: 0.2 -----R Total: -0.1 -----L Total: 0.5 Bone mineral density has: Decreased -10.7% since study of: 01/03/2020 FRAX%s: The graph provided illustrates a 39.0% chance for a major osteoporotic fx and a % chance for the hips probability for fx in 10 years time. IMPRESSION: Osteopenia (T Score between -2.5 and -1). There is slightly increased risk of fracture and the patient may be considered for treatment. Re-Screen 2-5 years. NOTE: T-SCORE=SD OF THE YOUNG ADULT MEAN.
== END | disposition home or self-care (01) ==
LOC: RADMAMWWP 12:27
PROVIDERS: ATTEND Family Medicine
DX: Z12.31 Encounter for screening mammogram for malignant neoplasm of breast (principal); M85.852 Other specified disorders of bone density and structure, left thigh; Z78.0 Asymptomatic menopausal state
CPT/HCPCS: 77063; 77067; 77080

== ENCOUNTER → 2024-08-17 | Outpatient (CLI) | payer MEDICARE ==
--- NOTE | 2024-08-17 12:17 | MM ---
Reason for Exam: Screening (asymptomatic). Last screening mammogram was performed 12 month(s) ago. Patient History: Menarche at age 12. First Full-Term at age 22. Postmenopausal. Patient has history of breast feeding. Other cancer. Estrogen for 10 years from age 18 until age 58. Benign Excisional Biopsy on the right side. Benign Excisional Biopsy on the left side. Benign Excisional Biopsy on the left side. Risk Values: Brittany 5 year model risk: 1.9%. NCI Lifetime model risk: 2.1%. Prior Study Comparison: 07/30/2021 Bilateral Screening Mammogram, [facility]. 07/31/2022 Bilateral MG 3D screening mammo w/cad, [facility]. 08/02/2023 Bilateral MG 3D screening mammo w/cad, [facility]. Tissue Density: The breasts are almost entirely fatty. Findings: Analyzed By CAD. Right breast: There is no suspicious group of microcalcifications or new suspicious mass. Benign-appearing calcifications right breast. Left breast: There is no suspicious group of microcalcifications or new suspicious mass. Benign-appearing calcifications left breast. Overall Assessment: Benign, BI-RAD 2 Management: Screening Mammogram of both breasts in [address] [facility] will attempt to contact patient to return for supplemental views and ultrasound if indicated. Patient should continue monthly self-breast exams. A clinical breast exam by your physician is recommended on an annual basis. This exam should not preclude additional follow-up of suspicious palpable abnormalities. Note on Brittany scores and lifetime risk: 1. A Brittany score greater than 3% is considered moderate risk. If this is the case, consider specialist referral to assess eligibility for a risk reducing agent. 2. If overall lifetime risk for the development of breast cancer is 20% or higher, the patient may qualify for future screening with alternating mammogram and breast MRI. [facility], , 08/17/2024 12:14 PM. Electronically signed and approved by: Gregorio Marsh DO
== END | disposition home or self-care (01) ==
LOC: RADMAMWWP 10:38
PROVIDERS: ATTEND Family Medicine
DX: Z12.31 Encounter for screening mammogram for malignant neoplasm of breast (principal); R92.313 Mammographic fatty tissue density, bilateral breasts; R92.1 Mammographic calcification found on diagnostic imaging of breast; Z78.0 Asymptomatic menopausal state
CPT/HCPCS: 77063; 77067

== ENCOUNTER → 2024-10-12 | Outpatient (CLI) | payer MEDICARE ==
--- NOTE | 2024-10-12 11:29 | CT ---
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 CT DLP: 528 mGycm. Automated Exposure Control for Dose Reduction was Utilized. FINDINGS: LUNGS: Mild to moderate fibrotic changes greatest in the periphery of the lower lungs is seen. No foc al consolidation. No concerning masses. Upper lungs are clear. No pleural effusion or pneumothorax no anay. No focal consolidation. HEART: Size within normal limits. No significant coronary artery calcifications. MEDIASTINUM: Lack of IV contrast is noted to limit evaluation for mediastinal and especially hilar ad enopathy. There are no definitive greater than 1 cm mediastinal lymph nodes. No pericardial effusio n is seen. Prominent main pulmonary artery raises concern for underlying pulmonary artery hypertensio n. Pectus excavatum deformity is redemonstrated. OTHER: A few simple-appearing thin-walled cysts in the bilateral kidneys are partially imaged. Scolio sis in the lumbar spine is partially imaged. IMPRESSION: Mild to moderate lower lung fibrotic change greatest in the periphery. [facility], , 10/12/2024 11:27 AM
== END | disposition home or self-care (01) ==
LOC: RADCTMAIN 10:27
PROVIDERS: ATTEND Internal Medicine Critical Care Medicine
DX: J84.112 Idiopathic pulmonary fibrosis (principal)
CPT/HCPCS: 71250